=== PATIENT | male | born 1940 | race Caucasian/White ===

== ENCOUNTER 2019-09-22 13:20 | Outpatient (CLI) | payer MEDICARE, OTHER, SELFPAY ==
--- NOTE | ~2019-09-22 | XR_ITS ---
XR hip LT min 2V DATE: 09/22/2019 13:51 INDICATION: Left hip pain. 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 No fracture, dislocation, avascular necrosis or bone destruction is evident. The pubic symphysis and sacral iliac joints are intact. Radiopaque prostate seeds are noted in the pr ostate bed. IMPRESSION: Moderately severe left hip osteoarthritis Reviewed, dictated and finalized at location B. TERIA TABLE ATTENDANT
== END 2019-09-22 13:21 | disposition home or self-care (01) ==
LOC: CHSIMG 13:27
PROVIDERS: PCP Internal Medicine; Visit Provider Internal Medicine
DX: M25.552 Pain in left hip (principal)
CPT/HCPCS: 73502

== ENCOUNTER 2020-09-30 11:06 | Outpatient (CLI) | payer MEDICARE, SELFPAY ==
[2020-09-30 12:38] LABS: SARS-CoV-2 Ag Negative (Negative)
== END 2020-09-30 11:07 | disposition home or self-care (01) ==
LOC: CHSLAB 11:09
PROVIDERS: PCP Internal Medicine; Visit Provider Internal Medicine
DX: R09.81 Nasal congestion (principal); R05 Cough; Z20.822 Contact with and (suspected) exposure to COVID-19
CPT/HCPCS: 87426; C9803

== ENCOUNTER 2020-10-01 13:47 | Outpatient (CLI) | payer MEDICARE, OTHER, SELFPAY ==
--- NOTE | ~2020-10-01 | XR_ITS ---
XR chest 2V DATE: 10/01/2020 14:27 INDICATION: Dyspnea TECHNIQUE: PA and lateral views COMPARISON: 07/19/2017 two-view chest FINDINGS: Heart size is at upper limits of normal. No hilar or mediastinal enlargement. No pulmonary infiltrate or consolidation, pleural effusion or pulmonary vascular congestion or pneumothorax is det ected. Diffuse osteopenia. There is mild to moderate anterior wedging of some mid thoracic vertebral bodies. Diffuse osteopenia. Surgical clips, right upper quadrant, consistent with cholecystectomy. IMPRESSION: No active pulmonary disease Reviewed, dictated and finalized at location A. TRY HATCHERY LABORER IMPRESSION: No active pulmonary disease
--- NOTE | 2020-10-01 14:03 | ECG_ITS ---
Measurements Intervals [place] Rate: 65 P: 15 NC: 194 QRS: 11 QRSD: 82 T: 10 QT: 380 QTc: 395 Interpretive Statements SINUS RHYTHM VOLTAGE CRITERIA FOR LVH BORDERLINE ECG Electronically Signed On 10-01-2020 14:21:06 THEATER MANAGER by Chauncey Galloway D.O.
== END 2020-10-01 13:48 | disposition home or self-care (01) ==
LOC: CHSIMG 13:50
PROVIDERS: PCP Internal Medicine; Visit Provider Internal Medicine
DX: R06.00 Dyspnea, unspecified (principal)
CPT/HCPCS: 71046; 93005

== ENCOUNTER 2020-10-05 08:02 | Outpatient (CLI) | payer MEDICARE, OTHER, SELFPAY ==
--- NOTE | 2020-10-05 08:08 | ECHO_ITS ---
Patient Info Name: Slava Govea Age: 80 years : 1940 Gender: Male Ht: 74 in Wt: 184 lbs BSA: 2.09 m2 HR: 77 bpm BP: 166 / 87 mmHg Heart Rhythm: Sinus Rhythm Technical Quality: Fair Exam Date: 10/05/2020 8:21 AM Exam Location: [facility] Patient Status: Outpatient Admit Date: 10/05/2020 Staff Ordering Physician: Eboni Oneill MD Slot Floorperson: Gail Ferguson RDCS Attending Provider: Eboni Oneill MD Referring Physician: Nino PANTOJA; Exam Type: CA echo doppler color flow Study Info Indications R06.00 - Dyspnea, unspecified Complete two-dimensional, color flow and Doppler transthoracic echocardiogram is performed. Strain analysis performed. History/Risk Factors Hypertension: No Dyslipidemia: Yes Congenital Heart Disease (CHD): No Peripheral Arterial Disease (PAD): No Chronic Lung Disease: No Obesity: No Renal Disease: No Coronary Artery Disease (CAD) No Congestive Heart Failure (CHF): No Cardiomyopathy/LV Systolic Dysfunction: No Diabetes Mellitus: No COPD: No Tobacco Use: Former Cerebrovascular Disease: No Family History: Coronary Artery Disease Deep Vein Thrombosis (DVT): None Dialysis: None Frailty Scale (CSHA): 2: Well Cardiac Arrest: No Summary 1. Complete two-dimensional, color flow and Doppler transthoracic echocardiogram is performed. 2. Left ventricular chamber dimension is normal. 3. Left ventricular systolic function is normal, estimated at 55-60%. 4. There is moderately increased left ventricular wall thickness. 5. The left ventricular diastolic function is grade I diastolic dysfunction. 6. E/e' 14 is mildly elevated. 7. Global longitudinal strain is abnormal at -14.7%. 8. Left atrial chamber dimension is mildly enlarged. 9. There is mild aortic valve sclerosis. 10. There is mild aortic valve regurgitation. 11. There is trace mitral valve regurgitation. 12. No pulmonary hypertension, estimated pulmonary arterial systolic pressure is 37 mmHg. Left Ventricle E/e' 14 is mildly elevated. Global longitudinal strain is abnormal at -14.7%. Left ventricular chamber dimension is normal. Left ventricular systolic function is normal, estimated at 55-60%. There is moderately increased left ventricular wall thickness. The left ventricular diastolic function is grade I diastolic dysfunction. Right Ventricle Right ventricular chamber dimension is normal. Right ventricular systolic function is normal. Left Atria Left atrial chamber dimension is mildly enlarged. Right Atria Right atrial chamber dimension is normal. Aortic Valve The aortic valve is trileaflet. There is mild aortic valve sclerosis. There is no aortic valve stenosis. There is mild aortic valve regurgitation. Pulmonic Valve There is no pulmonic regurgitation. Mitral Valve There is no mitral valve stenosis. There is trace mitral valve regurgitation. Tricuspid Valve There is no tricuspid valve regurgitation. No pulmonary hypertension, estimated pulmonary arterial systolic pressure is 37 mmHg. Pericardium/Pleural There is no pericardial effusion. Inferior Vena Cava Normal inferior vena cava with >50% collapse upon inspiration consistent with normal right atrial pressure, 5 mmHg. Aorta The aortic root size at the sinus of Valsalva is normal. Left Ventricular Outflow Tract
== END 2020-10-05 08:03 | disposition home or self-care (01) ==
LOC: CHSIMG 08:04
PROVIDERS: PCP Internal Medicine; Visit Provider Internal Medicine
DX: R06.00 Dyspnea, unspecified (principal); I35.1 Nonrheumatic aortic (valve) insufficiency; I35.8 Other nonrheumatic aortic valve disorders
CPT/HCPCS: 93306

== ENCOUNTER → 2021-01-17 02:54 | Outpatient (CLI) | payer MEDICARE, OTHER, SELFPAY ==
[2021-01-17 17:43] LABS: SARS-CoV-2 RNA PCR Negative
== END ==
PROVIDERS: PCP Internal Medicine; Visit Provider Surgery
DX: Z01.812 Encounter for preprocedural laboratory examination (principal); Z20.822 Contact with and (suspected) exposure to COVID-19
CPT/HCPCS: C9803; U0003; U0005

== ENCOUNTER 2021-01-20 00:49 | Day surgery (SDC) | payer MEDICARE, OTHER, SELFPAY ==
[2021-01-18 14:02] VITALS: BMI 23.2
[2021-01-20 08:25] VITALS: BP 140/73; PULSE 74; RESP 18; TEMP 36.2; O2SAT 98; BMI 23.2
[2021-01-20] MEDS: LACTATED RINGERS 1,000 ML 150 ML IV CONT (08:40)
[2021-01-20 09:26] VITALS: BP 90/51; PULSE 62; RESP 16; O2SAT 98
--- NOTE | 2021-01-20 09:27 | WPDHPUPDATE1 ---
History and Physical Update Update Date/Time: 01/20/21 09:27 History and Physical has been reviewed, including an updated exam of the patient. There are NO changes in the patient's condition. Risks, benefits, and alternatives have been discussed and questions answered. Patient agrees to proceed with procedure.
--- NOTE | 2021-01-20 09:31 | W.PM.PROC2 ---
Procedure Note - Detailed Date of Procedure 01/20/21 Pre-op Diagnosis rectal bleeding, grade 3 internal hemorrhoids Post-op Diagnosis same Procedure Performed internal hemorrhoid rubber banding x2 Surgeon Donell Pelayo, DO Anesthesia MAC Indications this is an 80-year-old man who presented with rectal bleeding. He has been complaining of prolapsing hemorrhoids that he has to manually reduce. He notices blood dripping in the toilet after bowel movements. Decision was made to proceed with colonoscopy and possible internal hemorrhoid rubber-band. Findings Prolapsing internal hemorrhoids were identified in the left lateral and right anterior locations. Rubber banding performed and both of these locations. Patient tolerated procedure well. Description of Procedure After concluding the colonoscopy, patient was kept in left lateral decubitus position. The anoscope was inserted and the anal rectal canal was carefully inspected. Prominent internal hemorrhoids noted in the left lateral and right anterior locations. Rubber banding performed in both of these locations. No other abnormalities noted. Estimated Blood Loss 0 Complications No immediate complications Condition stable Disposition same day
[2021-01-20 09:36] VITALS: BP 110/65; PULSE 68; RESP 15; O2SAT 98
[2021-01-20 09:46] VITALS: BP 124/78; PULSE 66; RESP 18; O2SAT 98
== END 2021-01-20 10:13 | disposition home or self-care (01) ==
PROVIDERS: PCP Internal Medicine; Visit Provider Surgery
PROC: 0DJD8ZZ Inspection of Lower Intestinal Tract, Via Natural or Artificial Opening Endoscopic (ICD-10-PCS; CPT 45378; principal; 2021-01-20 10:00)
PROC: (CPT 46221; 2021-01-20 10:00)
DX: K64.2 Third degree hemorrhoids (principal); D12.4 Benign neoplasm of descending colon; D12.5 Benign neoplasm of sigmoid colon
CPT/HCPCS: 46221; 45385; 88305; J2704; J7120

== ENCOUNTER 2021-02-04 11:11 | Outpatient (CLI) | payer MEDICARE, OTHER, SELFPAY ==
--- NOTE | ~2021-02-04 | US_ITS ---
EXAMINATION: US venous doppler LE RT DATE: 02/04/2021 11:45 INDICATION: Right lower limb pain TECHNIQUE: Brown scale images without and with compression and Doppler images of the right lower extre mity veins were obtained. COMPARISON: None FINDINGS: The right common femoral vein, profunda femoral vein, femoral vein, popliteal vein, peronea l trunk, posterior tibial veins, and greater saphenous vein are patent. IMPRESSION: 1. Patent right lower extremity veins. No evidence of deep venous thrombosis. Reviewed, dictated and finalized at location B.
--- NOTE | ~2021-02-04 | XR_ITS ---
EXAMINATION: XR tibia fibula RT 2V DATE: 02/04/2021 12:37 INDICATION: Right lower leg pain. TECHNIQUE: 2 views of right tibia and fibula on 4 radiographs were obtained. COMPARISON: None. FINDINGS: Bone alignment is normal. No fracture. There is mild right knee osteoarthritis. There is an enthesophyte at plantar aspect of calcaneal tuberosity. IMPRESSION: 1. Mild right knee osteoarthritis. Reviewed, dictated and finalized at location A.
[2021-02-04 11:23] LABS: Basophils Absolute Auto 0.04 K/mm3 (0.00-0.10); Basophils Percent Auto 0.7 % (0.0-1.0); Eosinophils Absolute Auto 0.26 K/mm3 (0.02-0.50); Eosinophils Percent Auto 4.6 % (1.0-6.0); Hematocrit 43.4 % (37.0-46.0); Hemoglobin 14.7 g/dL (12.4-15.3); Immature Granulocyte Absolute 0.04 K/mm3 (0.00-0.00); Immature Granulocyte Percent A 0.7 % (0.0-0.0); Lymphocytes Absolute Auto 1.75 K/mm3 (1.10-4.50); Lymphocytes Percent Auto 31.1 % (18.0-42.0); Mean Corpuscular HGB Conc 33.9 g/dL (32.0-36.0); Mean Corpuscular Hemoglobin 30.9 pg (27.0-31.0); Mean Corpuscular Volume 91.2 fL (78.0-102.0); Mean Platelet Volume 8.8 fl (8.7-11.0); Monocytes Absolute Auto 0.43 K/mm3 (0.10-0.90); Monocytes Percent Auto 7.6 % (2.0-11.0); Neutrophils Absolute Auto 3.1 K/mm3 (1.7-7.2); Neutrophils Percent Auto 55.3 % (50.0-70.0); Platelet Count Result 251 K/mm3 (150-420); Red Blood Count 4.76 M/mm3 (4.70-6.10); White Blood Count 5.6 K/mm3 (4.8-10.8)
[2021-02-04 11:38] LABS: Partial Thromboplastin Time 26.1 SEC (23.90-30.70); Prothrombin Time 10.3 Seconds (9.50-12.10)
[2021-02-04 12:47] LABS: Alanine Aminotransferase 31 U/L (16-63); Albumin Level 3.9 g/dL (3.4-5.0); Alkaline Phosphatase 129 U/L (46-116); Anion Gap 10 mmol/L (8-16); Aspartate Amino Transferase 19 U/L (15-37); Bilirubin,Total 0.7 mg/dL (0.00-1.00); Blood Urea Nitrogen 18 mg/dL (7-18); Calcium 9.7 mg/dL (8.5-10.1); Carbon Dioxide 27 mmol/L (21-32); Chloride 108 mmol/L (98-108); Estimated Glomerular Filt Rate > 60; Glucose 93 mg/dL (70-99); Osmolality Calculated 301 mOsm/kg (285-295); Potassium 4.4 mmol/L (3.5-5.1); Sodium 145 mmol/L (136-145); Total Protein 6.9 g/dL (6.4-8.2)
== END 2021-02-04 11:12 | disposition home or self-care (01) ==
PROVIDERS: PCP Internal Medicine; Visit Provider Nurse Practitioner Family
DX: M79.661 Pain in right lower leg (principal)
CPT/HCPCS: 36415; 73590; 80053; 85025; 85610; 85730; 93971

== ENCOUNTER 2021-02-06 09:41 | Emergency (ER) | payer MEDICARE, OTHER, SELFPAY ==
[2021-02-06 09:50] VITALS: BP 142/85; PULSE 80; RESP 17; TEMP 36.7; O2SAT 95
[2021-02-06] MEDS: KETOROLAC (*BKC) 60 MG/2 ML VIAL IM (10:01)
--- NOTE | 2021-02-06 10:02 | ED.EXTPRO ---
HPI - Extremity Problem General Chief complaint: Extremity Problem,Nontraumatic Stated complaint: R leg pain Time Seen by Provider: 02/06/21 09:52 Source: patient Mode of arrival: ambulatory Limitations: no limitations History of Present Illness Complaint: extremity pain Onset (ago): week(s) (1 week ago) Pain Consistency: intermittent Location: right and lower extremity Severity scale (1-10): 5 Quality: aching and dull Radiation: distal (from right buttock to right leg and toes. no acute trauma. known lumbar vertebral compression) Relieving factors: medication and rest Exacerbating factors: weight bearing and walking Associated symptoms: denies other symptoms Related Data Home Medications Medication Instructions Recorded Confirmed atorvastatin 40 mg tablet 40 mg PO DAILY 01/12/21 02/06/21 Allergies Allergy/AdvReac Type Severity Reaction Status Date / Time No Known Allergies Allergy Unknown Verified 01/18/21 14:07 Review of Systems Review of Systems: All systems reviewed & are unremarkable except as noted in HPI and below Constitutional: Constitutional: Reports as per HPI and Reports no additional constitutional complaints Eyes: Eyes: Reports as per HPI and Reports no additional eye complaints ENT: Reports system reviewed and no additional complaints, except as documented and Reports as per HPI Cardiovascular: Cardiovascular: Reports as per HPI and Reports no additional cardiovascular complaints Respiratory: Respiratory: Reports as per HPI and Reports no additional respiratory complaints Gastrointestinal: Gastrointestinal: Reports as per HPI and Reports no additional gastrointestinal complaints Genitourinary: Genitourinary: Reports no additional male genitourinary complaints and Reports as per HPI Musculoskeletal: Musculoskeletal: Denies back pain and Reports myalgias (right buttock to right leg pain) Integumentary/Breasts: Skin/Breast: Reports system reviewed and no additional complaints, except as docu and Reports as per HPI Neurologic: Reports system reviewed and no additional complaints, except as documented and Reports as per HPI Psychiatric: Psychiatric: Reports no additional psychiatric complaints and Reports as per HPI Endocrine: Endocrine: Reports no additional endocrine complaints and Reports as per HPI Hematologic/Lymphatic: Hematologic/Lymphatic: Reports no additional hematologic/lymphatic complaints Allergic/Immunologic: Allergic/Immunologic: Reports no additional allergic/immunologic complaints and Reports as per HPI PMFSH Past Medical History Medical History High cholesterol Surgical History Surgical History H/O hand surgery History of carpal tunnel release History of cholecystectomy Family History Family History Sibling Patient's sister is in good health Family history of hepatitis, Onset Age: 50 Patient's brother is Mother Acute myocardial infarction, Onset Age: 89 Patient's mother is Heart disease Father Patient's father is Acute myocardial infarction Heart disease Social History Social History Years smoked: 2 Smoking status: Former smoker Tobacco type: cigarettes Alcohol intake: never Substance use: never Substance use type: does not use 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
[2021-02-06 10:22] VITALS: RESP 16
== END 2021-02-06 10:20 | disposition home or self-care (01) ==
PROVIDERS: Emergency Provider Emergency Medicine; PCP Internal Medicine
DX: M54.31 Sciatica, right side (principal)
CPT/HCPCS: 96372; 99283; J1885

== ENCOUNTER 2021-03-01 13:37 | Outpatient (CLI) | payer MEDICARE, OTHER, SELFPAY ==
[2021-03-01 15:44] LABS: Urine Cotinine NEGATIVE
[2021-03-01 15:48] LABS: Hemoglobin A1C 5.7 % (<5.7)
== END 2021-03-01 13:38 | disposition home or self-care (01) ==
LOC: ANHSURGERY 13:39
PROVIDERS: PCP Internal Medicine; Visit Provider Orthopaedic Surgery
DX: Z01.812 Encounter for preprocedural laboratory examination (principal); M16.12 Unilateral primary osteoarthritis, left hip; Z51.81 Encounter for therapeutic drug level monitoring; Z79.899 Other long term (current) drug therapy
CPT/HCPCS: 80307; 83036; 86850; 86900; 86901; 87070

== ENCOUNTER 2021-03-04 11:08 | Outpatient (CLI) | payer MEDICARE, OTHER, SELFPAY ==
--- NOTE | ~2021-03-04 | XR_ITS ---
EXAMINATION: XR chest 2V 03/04/2021 11:34 INDICATION: Dyspnea. PROCEDURE: 2 view chest COMPARISON: Comparison to multiple prior studies sequentially, with oldest reviewed study dated 09/2008. FINDINGS: The lungs are clear. The cardiomediastinal silhouette is within normal limits. There are no pleural effusions. There is no pneumothorax suspected. IMPRESSION: 1: NO ACUTE CARDIOPULMONARY DISEASE. Reviewed, dictated and finalized at location A.
== END 2021-03-04 11:09 | disposition home or self-care (01) ==
LOC: CHSIMG 11:10
PROVIDERS: PCP Internal Medicine; Visit Provider Internal Medicine
DX: R06.00 Dyspnea, unspecified (principal); Z01.818 Encounter for other preprocedural examination
CPT/HCPCS: 71046

== ENCOUNTER 2021-03-15 06:35 | Inpatient (IN) | payer MEDICARE, OTHER, SELFPAY ==
[2021-03-01 14:22] VITALS: BP 175/65; PULSE 62; RESP 18; TEMP 36.7; O2SAT 98; BMI 25.4
--- NOTE | 2021-03-11 09:07 | PM.IMHP ---
H&P: HPI History of Present Illness Date/Time: 03/11/21 09:07 81 y/o patient of Dr. Oneill Who presents today for a left anterior total hip arthroplasty. He has been having pain in this left hip for over a year and half. It has progressively worsened. He is a very active 81-year-old. He is finding it difficult to maintain his active lifestyle to the pain in the groin and in the anterior thigh. 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 The patient feels that he has reached a point where he feels he is ready to proceed with total arthroplasty rather continue nonsurgical treatment. He has been taking Aleve 2 tablets once a day again without improvement of his symptoms. Chief Complaint: Left hip DJD Review of Systems Review of Systems: All systems reviewed & are unremarkable except as noted in HPI and below PMFSH Past Medical History Medical History High cholesterol Surgical History Surgical History H/O hand surgery History of carpal tunnel release History of cholecystectomy Family History Family History Sibling Patient's sister is in good health Family history of hepatitis, Onset Age: 50 Patient's brother is Mother Acute myocardial infarction, Onset Age: 89 Patient's mother is Heart disease Father Patient's father is Acute myocardial infarction Heart disease Social History Social History Smoking packs per day: 0.5 Smoking cigarettes per day: 10.0 Years smoked: 4 Smoking pack-years: 2.00 Smoking status: Former smoker Tobacco type: cigarettes Smoking end date: 02/03/1967 Alcohol intake: former Alcohol use details: [employer]INK[employer] Substance use: never Substance use type: does not use 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 He is 5 ft 11 182 lb. He walks without a limp. Left hip flexes to 105 with groin pain internal rotation to 0 with groin pain and external rotation 25 with mild groin pain. Stinchfield maneuver is negative. He has normal abduction strength in lateral position. No tenderness over the greater trochanter. 2+ posterior tibial artery pulse 1 +dorsalis pedis pulse. Normal sensation light touch left lower extremity. No edema in left lower extremity. Resp: Auscultation: clear to auscultation bilaterally Cardio: Rate: regular rate Rhythm: regular rhythm Assessment and Plan Additional Plan 1-year-old male with severe type 2 arthritis left hip with rather severe symptoms on a daily basis. Again he feels that the pain is keeping him from being active. Again he is very healthy individual and feels this point he would rather proceed with total hip arthroplasty rather continue nonsurgical treatment. Surgical procedure as well as the risks and complications were discussed in detail and all questions were answered and we will proceed. Patient will avoid his baby aspirin 1 week prior to surgery. He will see his primary care doctor for pre-surgical clearance. Patient has seen his produce weigher at [facility],Dr Diallo. He had stress echo due in October of this year which showed no evidenc
--- NOTE | 2021-03-11 19:26 | WPDANESEPP ---
Anes - Eval Pre Procedure Procedure: Operation Date: 03/14/21 07:30 Proposed Procedures p Left Total Hip Arthroplasty Anterior Approach - Eric Maradiaga MD Date/Time: 03/11/21 19:26 Pre Op Diagnosis: Severe OA Left Hip Patient Data Age: 81 Gender: M Height: 1.83 m Weight: 85.1 kg Last Vital Signs Temp 36.7 C 03/01/21 14:22 Pulse 62 03/01/21 14:22 Resp 18 03/01/21 14:22 BP 175/65 H 03/01/21 14:22 Pulse Ox 98 03/01/21 14:22 Allergies Allergy/AdvReac Type Severity Reaction Status Date / Time anchovies Allergy Rash, Uncoded 03/01/21 14:18 difficulty breathing Home Medications Medication Instructions Recorded Confirmed Type atorvastatin 40 mg tablet 40 mg PO QAM 01/12/21 03/01/21 History omeprazole magnesium [Prilosec OTC] 20 mg PO DAILY #20 tablet 02/06/21 03/01/21 Rx aspirin [Adult Aspirin EC Low 81 mg PO DAILY 03/01/21 03/01/21 History Strength] Patient hx anesthesia problems: none Family hx anesthesia problems: none PMFSH Past Medical History Medical History (Updated 03/11/21 @ 19:27 by Kumar Wolf DO) Compression fracture of lumbar vertebra High cholesterol History of prostate cancer 2008, radiation seeds Surgical History Surgical History H/O hand surgery History of carpal tunnel release History of cholecystectomy Family History Family History Sibling Patient's sister is in good health Family history of hepatitis, Onset Age: 50 Patient's brother is Mother Acute myocardial infarction, Onset Age: 89 Patient's mother is Heart disease Father Patient's father is Acute myocardial infarction Heart disease Social History Social History Smoking packs per day: 0.5 Smoking cigarettes per day: 10.0 Years smoked: 4 Smoking pack-years: 2.00 Smoking status: Former smoker Tobacco type: cigarettes Smoking end date: 02/03/1967 Alcohol intake: former Alcohol use details: [employer] Substance use: never Substance use type: does not use 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
[2021-03-14] VITALS (15 sets, daily range): BP systolic 102–159; BP diastolic 50–87; PULSE 68–88; RESP 13–18; TEMP 36.1–37.1; O2SAT 93–100
[2021-03-14] MEDS: ACETAMINOPHEN 500 MG TABLET 1000 MG PO ×4 (06:40→23:45)
[2021-03-14] MEDS: LACTATED RINGERS 1,000 ML 30 ML IV CONT ×2 (06:45→11:36)
[2021-03-14] MEDS: TRANEXAMIC ACID 1,000MG/ISO100 1,000 MG/100 ML BAG 200 MG IVPB (06:47)
--- NOTE | 2021-03-14 07:11 | WPDHPUPDATE1 ---
History and Physical Update Update Date/Time: 03/14/21 07:11 History and Physical has been reviewed, including an updated exam of the patient. There are NO changes in the patient's condition. Risks, benefits, and alternatives have been discussed and questions answered. Patient agrees to proceed with procedure.
--- NOTE | 2021-03-14 07:12 | P.PNAN_ITS ---
Anes - Initial Pre Proc Eval Procedure: Operation Date: 03/14/21 07:30 Proposed Procedures p Left Total Hip Arthroplasty Anterior Approach - Eric Maradiaga MD Date/Time: 03/14/21 07:12 Surgeon: Eric Maradiaga MD Pre Op Diagnosis: Severe OA Left Hip Patient Data Age: 81 Gender: M Height: 1.83 m Weight: 85.1 kg Last Vital Signs Temp 98.1 F 03/01/21 14:22 Pulse 62 03/01/21 14:22 Resp 18 03/01/21 14:22 BP 175/65 H 03/01/21 14:22 Pulse Ox 98 03/01/21 14:22 Allergies Allergy/AdvReac Type Severity Reaction Status Date / Time anchovies Allergy Rash, Uncoded 03/14/21 07:11 difficulty breathing Home Medications Medication Instructions Recorded Confirmed Type atorvastatin 40 mg tablet 40 mg PO QAM 01/12/21 03/01/21 History omeprazole magnesium [Prilosec OTC] 20 mg PO DAILY #20 tablet 02/06/21 03/01/21 Rx aspirin [Adult Aspirin EC Low 81 mg PO DAILY 03/01/21 03/01/21 History Strength] Patient hx anesthesia problems: none Family hx anesthesia problems: none PMFSH Past Medical History Medical History (Updated 03/11/21 @ 19:27 by Kumar Wolf DO) Compression fracture of lumbar vertebra High cholesterol History of prostate cancer 2008, radiation seeds Surgical History Surgical History H/O hand surgery History of carpal tunnel release History of cholecystectomy Family History Family History Sibling Patient's sister is in good health Family history of hepatitis, Onset Age: 50 Patient's brother is Mother Acute myocardial infarction, Onset Age: 89 Patient's mother is Heart disease Father Patient's father is Acute myocardial infarction Heart disease Social History Social History Smoking packs per day: 0.5 Smoking cigarettes per day: 10.0 Years smoked: 2 Smoking pack-years: 1.00 Smoking status: Former smoker Tobacco type: cigarettes Smoking end date: 02/03/1967 Alcohol intake: never Alcohol use details: [employer] Substance use: never Substance use type: does not use Living arrangements: alone 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 Questions were solicited and answers provided to the satisfaction of the patient/family/POA.
--- NOTE | 2021-03-14 07:31 | SUR.PREOP ---
5020 DR. OCONNOR MADE AWARE OF TWO SCRATCHES FROM HAIR REMOVAL.
[2021-03-14] MEDS: ceFAZolin 2 GM/D5W 50 ML 2 GM/50 ML BAG IVPB (07:58)
[2021-03-14] MEDS: ceFAZolin SODIUM 1 GM VIAL 3 GM IRRIGATION (08:21)
[2021-03-14] MEDS: ceFAZolin SODIUM 1 GM VIAL IV PUSH (11:03)
[2021-03-14] MEDS: TRANEXAMIC ACID 1,000 MG/10 ML AMPUL 1000 MG IV PUSH (11:04)
--- NOTE | 2021-03-14 11:20 | W.PM.PROC2 ---
Procedure Note - Detailed Date of Procedure 03/14/21 Pre-op Diagnosis Severe OA Left Hip Post-op Diagnosis same Procedure Performed Direct anterior approach left total hip arthroplasty Surgeon Eric Maradiaga MD [employer] Anesthesia general Indications Pain Findings Same Description of Procedure Patient brought to the operating room and general anesthesia was administered. Soft roll was applied to the feet and there placed in boots his transfer the OSI [place] table the feet secured SCDs on the legs operating. He received 2 g of Ancef weight based vancomycin 1 g of tranexamic acid preoperatively left hip prepped draped usual fashion. A 10 cm longitudinal incision was made starting about 2.5 cm lateral and 1 cm distal to the ASIS. The fascia over the tensor fascia mercedes was was exposed and longitudinally incised in its midportion elevated off the anterior 1/2 the TFL muscle interval between TFL and rectus femoris developed. We carefully isolated the branching vessels of the ascending lateral femoral circumflex branch and these were ligated with suture and divided. Ileal capsular is elevated off the anterior capsule retractor placed. Hip was abducted internally rotated and the gluteus minimus elevated off the lateral capsule. Standard capsulotomy was performed femoral neck osteotomy made according to preoperative templating the head was removed without difficulty. It measured 51 mm diameter. It was eburnated on its superior surface. There is no abnormal numb of appearance to the cancellous bone of the femoral neck. Acetabulum was exposed labrum excised. Hip was externally rotated and extended and the interval between conjoined tendon and piriformis was incised allowing the conjoined tendon to partially recessed. This gave adequate anterior mobilization the femur. With the leg back in the horizontal position the acetabulum was prepared. We medialized with a 45 mm Reamer to the floor of the fovea and then reamed up to 53 mm which reamed to the periphery was the appropriate size. We lightly reamed with a 54 and impacted the 54 shell [place] at approximately 40? of abduction and anteversion such that the shell was just a mm and the anterior wall and about 2 mm proud of the posterior wall. Excellent Press-Fit was achieved. A single screw placed up in the ilium for additional fixation. This cancellous bone was a little bit on the softer side. The leg was externally rotated extended and the femur addressed. We broached up to a size 7 which is what we templated to preoperatively. There was a little bit of wiggle on the broach. We determine the appropriate neck height after trialing and saw that the 1.5 was the appropriate neck lengths on the 30/6 mm head. We had already placed the 36 mm inner diameter 0 degree liner. This restored the preoperative leg length. There was a little bit of wiggle on the 7 broach went up to 8 and I was surprised to see that there was a little bit of torsional wiggle with the 8 as well so we went up to the 9 broach which bottomed out right at the level of the calcar planed neck cut would go no further. This had excellent torsional stability. We trialed and minus two with 0 twitches seemed that it would be probably appropriate the 1.5 just a little bit snug. We chose the size 9 high offset Actis stem. We used the Actis stem because of his age large size though quite canal and the aid of a collar and this was impacted and we could not seat it the last mm. The 1 minutes 0.5 mm neck was just a little bit tight the-2 head appropriate Shuck soft tissue tension but stayed stable. We impacted the-236 mm cobalt chromium stainless steel head onto the clean and dried trunnion the wound was again irrigated with antibiotic solution hip reduced stability reconfirmed. The capsular flaps were reapproximated with a 2. Vicryl and fascia over the tensor fascia mercedes repaired with running 1. Vicryl drain subcu skin with 2 subcutaneous Vicryl
[2021-03-14] MEDS: fentaNYL CITRATE INJ (*CRX) 100 MCG/2 ML VIAL 25 MCG IV PUSH (12:01)
--- NOTE | 2021-03-14 13:00 | PC.NURSE ---
This patient, Slava Govea Jr., was admitted to Medical Room 259-01. Patient/family oriented to hospital policies and general routines including ID bracelet, bed and alarms, visiting hours, pain management, procedures, bathroom and other care routines, personal items, smoking policy, room service/diet, and visiting hours. Information on how to activate the Rapid Response Team has been discussed. Patient/Family are encouraged to report perceived risks to care and to ask questions if they do not understand what they are told or what they should do.
[2021-03-14 13:23] LABS: Hematocrit 35.3 % (42.0-52.0); Hemoglobin 11.1 g/dL (14.0-18.0)
[2021-03-14] MEDS: oxyCODONE HCL (*CRX) 2.5 MG TAB IR PO ×4 (13:53→23:45)
[2021-03-14] MEDS: SODIUM CHLORIDE 0.9% IV 1,000 ML 125 ML IV CONT (13:56)
[2021-03-14] MEDS: SENNA/DOCUSATE SODIUM TABLET 2 TAB PO (17:53)
[2021-03-14] MEDS: FAMOTIDINE 20 MG TABLET PO (20:00)
--- NOTE | ~2021-03-15 | XR_ITS ---
EXAMINATION: XR hip LT 1V w AP pelvis DATE: 03/14/2021 11:41 INDICATION: Left hip arthroplasty. Postop. TECHNIQUE: An anteroposterior view of the pelvis and single view of left hip were obtained. COMPARISON: Left hip radiographs 09/22/2019 FINDINGS: There is a total left hip arthroplasty in near-anatomic alignment. No fracture. There is mi ld right hip osteoarthritis. There are brachytherapy seeds in the prostate. There is gas around the l eft hip, consistent with recent surgery. A surgical drain is noted. IMPRESSION: 1. Total left hip arthroplasty in near-anatomic alignment. 2. Mild right hip osteoarthritis. Reviewed, dictated and finalized at location A.
--- NOTE | ~2021-03-15 | XR_ITS ---
EXAMINATION: XR surgery orthopedic DATE: 03/14/2021 11:39 INDICATION: Total left hip arthroplasty. TECHNIQUE: A single intraoperative fluoroscopic view of the left hip was obtained. I was not present. Fluoroscopy exposure time was 33 seconds. COMPARISON: Left hip radiographs 09/22/2019 FINDINGS: There is a total left hip arthroplasty in near-anatomic alignment. There are brachytherapy seeds in the prostate. IMPRESSION: 1. Total left hip arthroplasty in near-anatomic alignment. Reviewed, dictated and finalized at location A.
[2021-03-15] MEDS: oxyCODONE HCL (*CRX) 2.5 MG TAB IR PO (05:09)
[2021-03-15] MEDS: ACETAMINOPHEN 500 MG TABLET 1000 MG PO ×3 (05:09→22:15)
[2021-03-15 05:49] LABS: Basophils Percent Auto 0.4 % (0.2-1.2); Eosinophils Percent Auto 0.1 % (0-4.4); Hemoglobin 8.9 g/dL (14.0-18.0); Immature Granulocyte Absolute 0.06 K/mm3 (0.00-0.031); Immature Granulocyte Percent A 0.6 % (0-0.5); Lymphocytes Absolute Auto 1.49 K/mm3 (0.9-3.2); Lymphocytes Percent Auto 14.7 % (18.3-44.2); Mean Corpuscular HGB Conc 31.8 g/dl (32-36); Mean Corpuscular Hemoglobin 30.4 pg (26-34); Mean Corpuscular Volume 95.6 fl (80-100); Mean Platelet Volume 9.2 fl (7.4-10.4); Monocytes Percent Auto 9.4 % (2.6-8.5); Neutrophils Absolute Auto 7.6 K/mm3 (1.3-6.7); Neutrophils Percent Auto 74.8 % (45.5-73.1); Platelet Count Result 210 k/mm3 (150-375); Red Blood Count 2.93 M/mm3 (4.6-6.20); Red Cell Distribution Width 14.6 % (11.5-14.5); White Blood Count 10.2 K/mm3 (4.5-10.0)
[2021-03-15 05:55] LABS: Anion Gap 7 mmol/L (8-16); Blood Urea Nitrogen 16 mg/dL (9-20); Calcium 8.5 mg/dL (8.4-10.2); Carbon Dioxide 22 mmol/L (22-30); Chloride 106 mmol/L (98-107); Estimated CRCL calculation 42 ml/min; Estimated Glomerular Filt Rate 53; Glucose 139 mg/dL (65-110); Potassium 3.8 mmol/L (3.4-5.0); Sodium 135 mmol/L (137-145)
--- NOTE | 2021-03-15 06:18 | PM.PNORT ---
Progress Note: A&P Additional Plan POD 1 alert avss, Cr-1.3 this morn, hgb-8.9, pt was up walking with PT doing well, drain is out , dressing is dry, pt states he has not urinated since surg. only had approx. 30cc out during surg. has had 840cc intake since being on floor, no hx of urinating issues, on no meds for it, will give blous of fluid this am and continue with IV fluids, pt is being bladder scanned and may need straight cath if retaining, will plan to keep for additional night since Cr has elevated and will see how pt does today with urination .may need to consult urology Subjective Subjective Date/Time Seen: 03/15/21 06:18 Objective Data Vital Signs Vital Signs: Vital Signs - 24 hr 03/14/21 11:36 03/14/21 11:50 03/14/21 12:05 Temperature 36.1 C L Pulse Rate 78 73 74 Respiratory Rate 14 16 13 Blood Pressure 130/57 L 132/63 137/74 Pulse Oximetry 95 98 98 03/14/21 12:15 03/14/21 12:20 03/14/21 12:35 Temperature Pulse Rate 76 78 Respiratory Rate 14 15 Blood Pressure 115/70 134/54 L Pulse Oximetry 98 95 96 03/14/21 12:41 03/14/21 13:25 03/14/21 13:40 Temperature 36.1 C L 36.7 C 36.5 C Pulse Rate 77 75 80 Respiratory Rate 16 16 16 Blood Pressure 119/51 L 114/51 L 112/50 L Pulse Oximetry 95 96 98 03/14/21 14:10 03/14/21 15:30 03/14/21 18:28 Temperature 36.8 C 37.1 C 36.9 C Pulse Rate 77 81 77 Respiratory Rate 16 16 16 Blood Pressure 104/54 L 102/56 L 113/53 L Pulse Oximetry 97 100 94 03/14/21 20:00 03/14/21 23:41 Temperature 36.9 C Pulse Rate 81 88 Respiratory Rate 16 16 Blood Pressure 111/54 L Pulse Oximetry 100 93 Intake/Output Intake/Output: Intake & Output 03/12/21 03/13/21 03/14/21 03/15/21 23:59 23:59 23:59 23:59 Intake Total 790 50 Output Total 0 Balance 790 50 Meds/Results Medications: Active Medications Generic Name Dose Route Start Last Admin Trade Name Freq PRN Reason Stop Dose Admin Acetaminophen 1,000 mg 03/14/21 18:00 03/15/21 05:09 Acetaminophen 500 Mg Tablet PO 1,000 mg Q6HR MIKHAIL Administration Al Hydrox/Mg Hydrox/Simethicone 30 ml 03/14/21 12:43 Mag Hydrox/Al Hydrox/Simeth 30 Ml Udc PO Q6H PRN Indigestion Apixaban 2.5 mg 03/15/21 09:00 Apixaban 2.5 Mg Tablet PO 04/18/21 21:01 Q12HR [facility] Atorvastatin Calcium 40 mg 03/15/21 09:00 Atorvastatin 40 Mg Tablet PO QAM [facility] Celecoxib 200 mg 03/15/21 09:00 Celecoxib 200 Mg Capsule PO DAILY [facility] Famotidine 20 mg 03/14/21 21:00 03/14/21 20:00 Famotidine 20 Mg Tablet PO 20 mg Q12HR MIKHAIL Administration Hydroxyzine HCl 50 mg 03/14/21 12:43 Hydroxyzine Hcl 25 Mg Tablet PO Q4H PRN Itching Vancomycin HCl 1,000 mg in 250 mls @ 250 mls/hr 03/14/21 19:00 03/14/21 17:53 Vancomycin 1,000 Mg/D5w 250 Ml IVPB 03/15/21 07:59 250 mls/hr Q12H [facility] Administration Cefazolin Sodium 1 gm in 50 mls @ 100 mls/hr 03/14/21 16:00 03/15/21 00:15 Ancef 1 Gm/D5w 50 Ml Pm IVPB 03/15/21 08:29 Infused Q8H [facility] Infusion Magnesium Hydroxide 30 ml 03/14/21 12:43 Magnesium Hydroxide Susp 30 Ml Udc PO BID PRN Constipation Morphine Sulfate 2 mg 03/14/21 12:43 Morphine Sulfate (*Crx) 2 Mg/Ml Inj IV PUSH Q4H PRN Pain Rated 7-10 Naloxone HCl 0.1 mg 03/14/21 12:43 Naloxone Hcl 0.4 Mg/Ml Vial IV PUSH Q2M PRN Opiate Reversal Ondansetron HCl 4 mg 03/14/21 12:43 Ondansetron Inj 4 Mg/2 Ml Vial IV PUSH Q4H PRN Nausea And Vomiting Oxycodone HCl 2.5 mg 03/14/21 12:43 03/15/21 05:09 Oxycodone Hcl (*Crx) 2.5 Mg Tab Ir PO 2.5 mg Q4H MIKHAIL Administration Oxycodone HCl 2.5 mg 03/14/21 12:43 Oxycodone Hcl (*Crx) 2.5 Mg Tab Ir PO Q4H PRN Pain Rated 4-6 Polyethylene Glycol 17 gm 03/15/21 09:00 Polyethylene Glycol 3350 17 Gm Powd.Pack PO QAM MIKHAIL Senna/Docusate Sodium 2 tab 03/14/21 17:00 03/14/21 17:53 Senna/Docusate Sodium Tablet PO
[2021-03-15 06:26] VITALS: BP 91/42; PULSE 79; RESP 16; TEMP 37.1; O2SAT 91
--- NOTE | 2021-03-15 06:38 | PM.PNORT ---
Progress Note: A&P Additional Plan Pt did void 400cc this am .had 700cc on bladder scan before getting to urinate. also c/o of some ulnar nerve symptoms on the left hand due to lying with elbow bent resting hand on chest, advised pt to stop holding in this position, will hold off on bolus but cont with IV fluids, min swelling in thigh, low hgb is poss hemodilutional,will recheck CBC and BMP tomorrow am Subjective Subjective Date/Time Seen: 03/15/21 06:38 Objective Data Vital Signs Vital Signs: Vital Signs - 24 hr 03/14/21 11:36 03/14/21 11:50 03/14/21 12:05 Temperature 36.1 C L Pulse Rate 78 73 74 Respiratory Rate 14 16 13 Blood Pressure 130/57 L 132/63 137/74 Pulse Oximetry 95 98 98 03/14/21 12:15 03/14/21 12:20 03/14/21 12:35 Temperature Pulse Rate 76 78 Respiratory Rate 14 15 Blood Pressure 115/70 134/54 L Pulse Oximetry 98 95 96 03/14/21 12:41 03/14/21 13:25 03/14/21 13:40 Temperature 36.1 C L 36.7 C 36.5 C Pulse Rate 77 75 80 Respiratory Rate 16 16 16 Blood Pressure 119/51 L 114/51 L 112/50 L Pulse Oximetry 95 96 98 03/14/21 14:10 03/14/21 15:30 03/14/21 18:28 Temperature 36.8 C 37.1 C 36.9 C Pulse Rate 77 81 77 Respiratory Rate 16 16 16 Blood Pressure 104/54 L 102/56 L 113/53 L Pulse Oximetry 97 100 94 03/14/21 20:00 03/14/21 23:41 03/15/21 06:26 Temperature 36.9 C 37.1 C Pulse Rate 81 88 79 Respiratory Rate 16 16 16 Blood Pressure 111/54 L 91/42 L Pulse Oximetry 100 93 91 Intake/Output Intake/Output: Intake & Output 03/12/21 03/13/21 03/14/21 03/15/21 23:59 23:59 23:59 23:59 Intake Total 1040 50 Output Total 0 400 Balance 1040 -350 Meds/Results Medications: Active Medications Generic Name Dose Route Start Last Admin Trade Name Freq PRN Reason Stop Dose Admin Acetaminophen 1,000 mg 03/14/21 18:00 03/15/21 05:09 Acetaminophen 500 Mg Tablet PO 1,000 mg Q6HR MIKHAIL Administration Al Hydrox/Mg Hydrox/Simethicone 30 ml 03/14/21 12:43 Mag Hydrox/Al Hydrox/Simeth 30 Ml Udc PO Q6H PRN Indigestion Apixaban 2.5 mg 03/15/21 09:00 Apixaban 2.5 Mg Tablet PO 04/18/21 21:01 Q12HR MIKHAIL Atorvastatin Calcium 40 mg 03/15/21 09:00 Atorvastatin 40 Mg Tablet PO QAM MIKHAIL Famotidine 20 mg 03/14/21 21:00 03/14/21 20:00 Famotidine 20 Mg Tablet PO 20 mg Q12HR MIKHAIL Administration Hydroxyzine HCl 50 mg 03/14/21 12:43 Hydroxyzine Hcl 25 Mg Tablet PO Q4H PRN Itching Vancomycin HCl 1,000 mg in 250 mls @ 250 mls/hr 03/14/21 19:00 03/15/21 06:19 Vancomycin 1,000 Mg/D5w 250 Ml IVPB 03/15/21 07:59 250 mls/hr Q12H [facility] Administration Cefazolin Sodium 1 gm in 50 mls @ 100 mls/hr 03/14/21 16:00 03/15/21 00:15 Ancef 1 Gm/D5w 50 Ml Pm IVPB 03/15/21 08:29 Infused Q8H [facility] Infusion Lactated Ringer's 1,000 mls @ 100 mls/hr 03/15/21 06:30 Lr - Lactated Ringers Iv IV CONT .Q10H [facility] Magnesium Hydroxide 30 ml 03/14/21 12:43 Magnesium Hydroxide Susp 30 Ml Udc PO BID PRN Constipation Morphine Sulfate 2 mg 03/14/21 12:43 Morphine Sulfate (*Crx) 2 Mg/Ml Inj IV PUSH Q4H PRN Pain Rated 7-10 Naloxone HCl 0.1 mg 03/14/21 12:43 Naloxone Hcl 0.4 Mg/Ml Vial IV PUSH Q2M PRN Opiate Reversal Ondansetron HCl 4 mg 03/14/21 12:43 Ondansetron Inj 4 Mg/2 Ml Vial IV PUSH Q4H PRN Nausea And Vomiting Oxycodone HCl 2.5 mg 03/14/21 12:43 03/15/21 05:09 Oxycodone Hcl (*Crx) 2.5 Mg Tab Ir PO 2.5 mg Q4H MIKHAIL Administration Oxycodone HCl 2.5 mg 03/14/21 12:43 Oxycodone Hcl (*Crx) 2.5 Mg Tab Ir PO Q4H PRN Pain Rated 4-6 Polyethylene Glycol 17 gm 03/15/21 09:00 Polyethylene Glycol 3350 17 Gm Powd.Pack PO QAM MIKHIAL Senna/Docusate Sodium 2 tab 03/14/21 17:00 03/14/21 17:53 Senna/Docusate Sodium Tablet PO 2 tab BID MIKHAIL Administration Radiology Results: ITS Impressions Hip/Pelvis X-Ray
[2021-03-15] MEDS: LACTATED RINGERS 1,000 ML 100 ML IV CONT ×2 (06:55→18:31)
[2021-03-15] MEDS: SENNA/DOCUSATE SODIUM TABLET 2 TAB PO ×2 (09:30→18:30)
[2021-03-15] MEDS: oxyCODONE HCL (*CRX) 5 MG TAB IR PO ×4 (09:30→20:23)
[2021-03-15] MEDS: APIXABAN 2.5 MG TABLET PO ×2 (09:30→20:23)
[2021-03-15] MEDS: polyethylene glycoL 3350 17 GM POWD.PACK PO (09:30)
[2021-03-15] MEDS: ATORVASTATIN 40 MG TABLET PO (09:30)
[2021-03-15 10:00] VITALS: BP 112/75; PULSE 73; RESP 18; TEMP 37.1; O2SAT 97
--- NOTE | 2021-03-15 10:32 | PM.CNNEP ---
Assessment and Plan Assessment and plan (1) Elevated serum creatinine: Code(s): R79.89 - Other specified abnormal findings of blood chemistry Status: Acute Assessment and Plan: elevated this AM normal baseline creatinine likely related to urinary retention -- bladder scan noted voiding at this time -- follow urine output suspect urinary retention secondary to anesthesia follow repeat labs -- if creatinine continues to rise, will proceed with further evaluation/testing (2) Osteoarthritis of left hip: Code(s): M16.12 - Unilateral primary osteoarthritis, left hip Status: Chronic Assessment and Plan: s/p total left hip arthroplasty post-op care as outlined by Orthopedic Surgery Will continue to follow. History of Present Illness Reason for Consult Consult date: 03/15/21 Reason for consult: acute renal failure Chief Complaint Chief complaint: Severe OA Left Hip History of Present Illness Narrative: The patient is a 81 year old male with a past medical history as outlined below who was directly admitted to [facility] following his total left hip replacement by Dr. Maradiaga on 03/14/21. The patient has been having issues and problems with his left hip for quite a while now and unfortunately, conservative therapy has failed to improve this condition. As the pain was getting worse and worse and affecting his activities of daily living, it was recommended he undergo hip replacement surgery as a definitive treatment for this problem. He successfully had this intervention done yesterday. However, postoperatively, it was noted that he was having difficulty urinating and his labs this morning showed his creatinine to be higher than baseline. He was started on IV fluids but it should be noted as bladder scan showed a significant amount of urinary retention which was relieved when he was able to urinate not too long ago. He otherwise appears to be doing better currently. Renal consultation was requested due to the elevated creatinine as noted by his a.m. labs. From review his records, he has no history or issues with regard to renal dysfunction although he does report he has had issues and problems with BPH and prostate cancer in the past. However, prior to this operative intervention, he never had any issues or problems with urinary retention, hesitancy, dribbling, frequent urinary tract infections, that at that except her up. It is felt that his urinary retention noted earlier this morning was probably related to anesthesia /drug issue since he appears to be urinating quite well at this time. Currently, at the time my visit, he appears in no acute distress. Review of Systems Review of Systems: As per HPI. [facility] Past Medical History Medical History Compression fracture of lumbar vertebra High cholesterol History of prostate cancer 2008, radiation seeds Surgical History Surgical History H/O hand surgery History of carpal tunnel release History of cholecystectomy Family History Family History Sibling Patient's sister is in good health Family history of hepatitis, Onset Age: 50 Patient's brother is Mother Acute myocardial infarction, Onset Age: 89 Patient's mother is Heart disease Father Patient's father is Acute myocardial infarction Heart disease Social History Social History (Updated 03/15/21 @ 10:53 by PETR Nolan) Social History: Patient lives alone in a one story home with his cat. He has several brothers and sisters and has picked his brother Yordy or sister Marita to be his surrogate if he was unable to make his own decision. He also wishes to be a full code at this time. Smoking packs per day: 0.5
--- NOTE | 2021-03-15 10:34 | PM.IMCN ---
Assessment and Plan Assessment and plan (1) Osteoarthritis of left hip: Code(s): M16.12 - Unilateral primary osteoarthritis, left hip Status: Chronic Assessment and Plan: Left hip replacement done 03/14/21 Managed by ortho Pain: Morphine 2mg IV Q4hr PRN, Roxicodone 2.5mg PO Q4hr PRN/GABRIELLE, Tylenol 1000mg PO Q8hr Gabrielle Antiemetic: Zofran 4mg IV Q4hr PRN Bowel: Senna 2 tab BID, MOM 30ml BID PRN, Mylanta 30ml PO Q6hr PRN Cefazolin 1gm IV x 3 bags DVT Eliquis PT and OT (2) COLEEN (acute kidney injury): Code(s): N17.9 - Acute kidney failure, unspecified Status: Acute Assessment and Plan: Creatinine 1.30 Elevated compared to admission Trend labs Labs in the am LR at 100ml/hr for hydration (3) BPH (benign prostatic hyperplasia): Code(s): N40.0 - Benign prostatic hyperplasia without lower urinary tract symptoms Status: Acute Assessment and Plan: HX of BPH Ortho consulted nephrology Might need to get urology involved if problem becomes acute Patient was able to urinate with standing and going in the bathroom (4) GERD (gastroesophageal reflux disease): Code(s): K21.9 - Gastro-esophageal reflux disease without esophagitis Status: Acute Assessment and Plan: Patient exam omeprazole 20 mg p.o. daily at home While in-patient will place patient on famotidine 20 mg p.o. daily (5) HLD (hyperlipidemia): Code(s): E78.5 - Hyperlipidemia, unspecified Status: Acute Assessment and Plan: Continue home atorvastatin 40 mg p.o. daily HPI Data of Consult Consult date: 03/16/21 Requesting Physician: Eric Maradiaga MD Primary Care Provider: Eboni Oneill MD Consult Narrative Narrative: Date of service 03/15/21 09:38 Slava Govea Jr. is a 81 year old male with a past medical history of GERD and HLD that was scheduled to have an total left hip replacement by Dr. Maradiaga on 03/14/21. Patient stated that he has been having trouble over the last year. He stated that he went to have his hip evaluated and the right hip showed to be in good standing while the left hip was deteriorated. He stated they were unaware of how this could of happened, however, in 2008 he was noted to have BPH. He stated that he went to Dr. Connolly for treatment and they put radiation to the prostate to shrink it, which he stated that her had 113 treatments done to it. Since then his PSA has been 0.1. He currently stated that he is having pain on the left hip which he rates to be a 7-8/10. He was also up in the chair and did use the bathroom. He also stated that he was having a hard time urinating this morning, however, it was because he was sitting on the side of the bed. When he was able to go into the bathroom, he did have a decent time and was able to fully empty. He did deny urinary dysfunction, chest pain, shortness of breath, weakness, fatigue, fever, chills, sweats, or any other symptoms. Review of Systems Review of Systems: All systems reviewed & are unremarkable except as noted in HPI and below PMFSH Past Medical History Medical History Compression fracture of lumbar vertebra High cholesterol History of prostate cancer 2008, radiation seeds Surgical History Surgical History H/O hand surgery History of carpal tunnel release History of cholecystectomy Family History Family History Sibling Patient's sister is in good health Family history of hepatitis, Onset Age: 50 Patient's brother is Mother Acute myocardial infarction, Onset Age: 89 Patient's mother is Heart disease Father Patient's father is Acute myocardial infarction Heart disease Social History Social Hi
[2021-03-15 14:28] VITALS: BP 138/43; PULSE 80; RESP 16; TEMP 37.2; O2SAT 99
--- NOTE | 2021-03-15 14:50 | WPDANESPN ---
Anes - Prog Note Post-Op Date/Time: 03/15/21 14:50 Cardiovascular status: normal Respiratory status: normal Airway patency: baseline Mental status: baseline Post-Op hydration status: normal Vital Signs: Last Vital Signs Temp 37.2 C 03/15/21 14:28 Pulse 80 03/15/21 14:28 Resp 16 03/15/21 14:28 BP 138/43 L 03/15/21 14:28 Pulse Ox 99 03/15/21 14:28 Pain Score (VAS): 2 I/O: Intake & Output 03/14/21 03/15/21 03/15/21 23:59 07:59 15:59 Intake Total 540 50 540 Output Total 400 450 Balance 540 -350 90 Laboratory Tests 03/15/21 05:13 03/15/21 05:13 03/15/21 03/15/21 03/15/21 05:11 05:13 05:13 WBC 10.2 H RBC 2.93 L Hgb 8.9 L Hct 28.0 L MCV 95.6 MCH 30.4 MCHC 31.8 L RDW 14.6 H Plt Count 210 MPV 9.2 Immature Gran % (Auto) 0.6 H Neut % (Auto) 74.8 H Lymph % (Auto) 14.7 L [place] % (Auto) 9.4 H Eos % (Auto) 0.1 Baso % (Auto) 0.4 Lymph # (Auto) 1.49 [place] # (Auto) 1.0 H Eos # (Auto) 0.0 Baso # (Auto) 0.0 Abs Immat Gran (auto) 0.06 H Absolute Neuts (auto) 7.6 H Absolute Nucleated RBC 0.0 Nucleated RBC % 0.0 Sodium 135 L Potassium 3.8 Chloride 106 Carbon Dioxide 22 Anion Gap 7 L BUN 16 Creatinine 1.30 Estim Creat Clear Calc 42 Estimated GFR 53 L Glucose 139 H Calcium 8.5 Vit D 1,25-Dihyd Total Pending 1,25 Dihydroxy Vit D2 Pending 1,25 Dihydroxy Vit D3 Pending Post-procedural complaints: none Patient Feedback: Patient satisfied with anesthetic care.
[2021-03-15 20:00] VITALS: PULSE 87; RESP 20; O2SAT 97
[2021-03-15] MEDS: FAMOTIDINE 20 MG TABLET PO (20:24)
[2021-03-15 20:42] VITALS: BP 162/61; PULSE 87; RESP 20; TEMP 38.4; O2SAT 97
[2021-03-16] MEDS: oxyCODONE HCL (*CRX) 5 MG TAB IR PO ×4 (01:17→12:47)
[2021-03-16] MEDS: LACTATED RINGERS 1,000 ML 100 ML IV CONT (04:26)
[2021-03-16 05:02] VITALS: BP 127/57; PULSE 87; RESP 20; TEMP 38.1; O2SAT 92
[2021-03-16] MEDS: ACETAMINOPHEN 500 MG TABLET 1000 MG PO ×2 (05:03→14:56)
[2021-03-16 05:44] LABS: Basophils Percent Auto 0.4 % (0.2-1.2); Eosinophils Absolute Auto 0.2 K/mm3 (0-0.3); Eosinophils Percent Auto 2.1 % (0-4.4); Hematocrit 27.1 % (42.0-52.0); Hemoglobin 8.7 g/dL (14.0-18.0); Immature Granulocyte Absolute 0.04 K/mm3 (0.00-0.031); Immature Granulocyte Percent A 0.5 % (0-0.5); Mean Corpuscular HGB Conc 32.1 g/dl (32-36); Mean Corpuscular Hemoglobin 30.1 pg (26-34); Mean Corpuscular Volume 93.8 fl (80-100); Mean Platelet Volume 9.3 fl (7.4-10.4); Monocytes Absolute Auto 0.7 K/mm3 (0.1-0.6); Monocytes Percent Auto 8.2 % (2.6-8.5); Neutrophils Absolute Auto 5.9 K/mm3 (1.3-6.7); Neutrophils Percent Auto 71.8 % (45.5-73.1); Platelet Count Result 207 k/mm3 (150-375); Red Blood Count 2.89 M/mm3 (4.6-6.20); Red Cell Distribution Width 14.5 % (11.5-14.5); White Blood Count 8.2 K/mm3 (4.5-10.0)
[2021-03-16 05:53] LABS: Anion Gap 5 mmol/L (8-16); Blood Urea Nitrogen 16 mg/dL (9-20); Calcium 8.9 mg/dL (8.4-10.2); Carbon Dioxide 23 mmol/L (22-30); Chloride 109 mmol/L (98-107); Estimated CRCL calculation 60 ml/min; Estimated Glomerular Filt Rate > 60; Glucose 96 mg/dL (65-110); Potassium 4.1 mmol/L (3.4-5.0); Sodium 137 mmol/L (137-145)
[2021-03-16] MEDS: ATORVASTATIN 40 MG TABLET PO (08:16)
[2021-03-16] MEDS: SENNA/DOCUSATE SODIUM TABLET 2 TAB PO (08:16)
[2021-03-16] MEDS: APIXABAN 2.5 MG TABLET PO (08:16)
--- NOTE | 2021-03-16 09:09 | PM.PNORT ---
Progress Note: A&P Additional Plan Postop day 2 patient is doing better. He has been afebrile and vital signs been stable. His creatinine is back down to .99. Hemoglobin 8.7 and is stable from yesterday. Wound is dry. Minimal swelling in the thigh. Patient has been urinating very well throughout the day yesterday. He has had over 1200 cc output. Nephrology has seen him and does not recommend any additional testing at this point unless he continues to problems. Overall pain is well controlled. We will plan to discharge the patient today. We will not utilize Celebrex on him, the concern is whether his kidney function is completely normal given the fact that he had the bump. Because of that we will avoid anti-inflammatories with him. We will have the patient work with therapy this morning and plan to discharge to home around noon today. Subjective Subjective Date/Time Seen: 03/16/21 09:09 Objective Data Vital Signs Vital Signs: Vital Signs - 24 hr 03/15/21 10:00 03/15/21 14:28 03/15/21 20:00 Temperature 37.1 C 37.2 C Pulse Rate 73 80 87 Respiratory Rate 18 16 20 Blood Pressure 112/75 138/43 L Pulse Oximetry 97 99 97 03/15/21 20:42 03/16/21 05:02 Temperature 38.4 C H 38.1 C H Pulse Rate 87 87 Respiratory Rate 20 20 Blood Pressure 162/61 H 127/57 L Pulse Oximetry 97 92 Intake/Output Intake/Output: Intake & Output 03/13/21 03/14/21 03/15/21 03/16/21 23:59 23:59 23:59 23:59 Intake Total 1040 1790 1430 Output Total 0 1100 550 Balance 1040 690 880 Meds/Results Medications: Active Medications Generic Name Dose Route Start Last Admin Trade Name Freq PRN Reason Stop Dose Admin Acetaminophen 1,000 mg 03/15/21 14:00 03/16/21 05:03 Acetaminophen 500 Mg Tablet PO 1,000 mg Q8HR MIKHAIL Administration Al Hydrox/Mg Hydrox/Simethicone 30 ml 03/14/21 12:43 Mag Hydrox/Al Hydrox/Simeth 30 Ml Udc PO Q6H PRN Indigestion Apixaban 2.5 mg 03/15/21 09:00 03/16/21 08:16 Apixaban 2.5 Mg Tablet PO 04/18/21 21:01 2.5 mg Q12HR MIKHAIL Administration Atorvastatin Calcium 40 mg 03/15/21 09:00 03/16/21 08:16 Atorvastatin 40 Mg Tablet PO 40 mg QAM MIKHAIL Administration Famotidine 20 mg 03/15/21 21:00 03/15/21 20:24 Famotidine 20 Mg Tablet PO 20 mg HS MIKHAIL Administration Hydroxyzine HCl 50 mg 03/14/21 12:43 Hydroxyzine Hcl 25 Mg Tablet PO Q4H PRN Itching Magnesium Hydroxide 30 ml 03/14/21 12:43 Magnesium Hydroxide Susp 30 Ml Udc PO BID PRN Constipation Morphine Sulfate 2 mg 03/14/21 12:43 Morphine Sulfate (*Crx) 2 Mg/Ml Inj IV PUSH Q4H PRN Pain Rated 7-10 Naloxone HCl 0.1 mg 03/14/21 12:43 Naloxone Hcl 0.4 Mg/Ml Vial IV PUSH Q2M PRN Opiate Reversal Ondansetron HCl 4 mg 03/14/21 12:43 Ondansetron Inj 4 Mg/2 Ml Vial IV PUSH Q4H PRN Nausea And Vomiting Oxycodone HCl 2.5 mg 03/14/21 12:43 Oxycodone Hcl (*Crx) 2.5 Mg Tab Ir PO Q4H PRN Pain Rated 4-6 Oxycodone HCl 5 mg 03/15/21 09:00 03/16/21 08:16 Oxycodone Hcl (*Crx) 5 Mg Tab Ir PO 5 mg Q4HR MIKHAIL Administration Polyethylene Glycol 17 gm 03/15/21 09:00 03/15/21 09:30 Polyethylene Glycol 3350 17 Gm Powd.Pack PO 17 gm QAM MIKHAIL Administration Senna/Docusate Sodium 2 tab 03/14/21 17:00 03/16/21 08:16 Senna/Docusate Sodium Tablet PO 2 tab BID MIKHAIL Administration Radiology Results: ITS Impressions Hip/Pelvis X-Ray 03/14/21 12:11 IMPRESSION: 1. Total left hip arthroplasty in near-anatomic alignment. 2. Mild right hip osteoarthritis. Intraoperative X-Ray 03/14/21 12:12 IMPRESSION: 1. Total left hip arthroplasty in near-anatomic alignment. Labs Labs: Laboratory Results - last 24 hr 08/11/21 08/11/21 05:28 05:28 WBC 8.2 RBC 2.89 L Hgb 8.7 L Hct 27.1 L MCV 93.8 MCH 30.1 MCHC 32.1 RDW 14.5 Plt Count 207 MPV 9.3 Immature Gran % (Auto) 0.5
--- NOTE | 2021-03-16 10:18 | PM.DS ---
DS: Admitting Diagnosis Admitting Diagnosis left hip DJD DS: Summary Hospital Course Hospital Course: overall stable, had elevation of Cr on POD that resolved on POD 2 with fluids, Time Spent with Patient Time attestation: Total time spent providing and/or coordinating discharge services: 81-year-old male who underwent left anterior total arthroplasty on 03/14/2021. He underwent the procedure without complications. He he did have a brief issue of hypertension preoperatively but this quickly corrected during time of surgery and since that time he has been afebrile vital signs been stable. He did not urinate after surgery, when I saw him early postop day 1 he is still had not urinated. He had a bladder scan done which showed 700 cc and once they stood him up he was able urinate 400 cc out. His creatinine jumped to 1.39 on postop day 1. Preop he was 0.99. He was kept for an additional night because of these factors. IV fluids were maintained, medications including Celebrex and Pepcid for all decreased due to the renal issue. Nephrology was consulted. They did not feel that any additional testing was needed. During postop day 1 patient was ambulatory and was able to urinate multiple times and was feeling overall well improved. His pain is well controlled with Tylenol as well as oxycodone. He is on Eliquis for DVT prophylaxis. Postop day 2 his creatinine was back to baseline at 0.99. His hemoglobin was 8.7, the day prior he was 8.9 so this is stable. He will be discharged to home on 03/16. He is weight-bearing as tolerated. He is to keep the leg elevated 0 prevent swelling. He is also being sent home with MiraLax and Senokot for constipation. Patient was advised any questions or concerns he should call the office otherwise we will see him at his appoint date. Again we are going to not use Celebrex on him due to the concern of his overall kidney function. DS: Data Data Completed and Pending Labs on day of discharge: Labs from last 24 hours 03/16/21 03/16/21 05:28 05:28 WBC 8.2 RBC 2.89 L Hgb 8.7 L Hct 27.1 L MCV 93.8 MCH 30.1 MCHC 32.1 RDW 14.5 Plt Count 207 MPV 9.3 Immature Gran % (Auto) 0.5 Neut % (Auto) 71.8 Lymph % (Auto) 17.0 L [place] % (Auto) 8.2 Eos % (Auto) 2.1 Baso % (Auto) 0.4 Lymph # (Auto) 1.40 [place] # (Auto) 0.7 H Eos # (Auto) 0.2 Baso # (Auto) 0.0 Abs Immat Gran (auto) 0.04 H Absolute Neuts (auto) 5.9 Absolute Nucleated RBC 0.0 Nucleated RBC % 0.0 Sodium 137 Potassium 4.1 Chloride 109 H Carbon Dioxide 23 Anion Gap 5 L BUN 16 Creatinine 0.90 Estim Creat Clear Calc 60 Estimated GFR > 60 Glucose 96 Calcium 8.9 Discharge Plan Discharge Attending physician on discharge: Juanita Oconnor Consulting providers: Toro Marrufo ; Rosalia Martinez Discharging Clinician: Huey Canchola Anticipated Discharge Date/Time: 03/16/21 12:37 Patient Disposition: Home, Self-Care Activity: may shower, follow weight bearing status and other - see discharge instructions Diet: as tolerated Wound Care Instructions: follow printed instructions Discharge Instructions: JUANITA OCONNOR M.D [facility] [address] [place] [id number] POST-OPERATIVE DISCHARGE INSTRUCTIONS ANTERIOR TOTAL HIP ARTHROPLASTY 1. Move toes/feet up and down every hour while awake. 2. Be up walking every hour while awake. 3. Use cane in hand opposite of side of hip surgery or walker as comfort allows. Avoid sitting in a chair unless eating, receiving visitors or using the toilet. 4. When resting, lie on back with leg elevated above heart to minimize swelling. Significant swelling could indicate a blood clot and if this occurs, call the office (or go to the ER) to have a venous ultrasound performed. 5. Wound Care: Keep dry sponge on wound for 2 weeks. Use minimal tape. 6. F
[2021-03-16] MEDS: polyethylene glycoL 3350 17 GM POWD.PACK PO (10:29)
--- NOTE | 2021-03-16 12:08 | WPDHPUPDATE1 ---
History and Physical Update Update Date/Time: 03/16/21 12:08 History and Physical has been reviewed, including an updated exam of the patient. There are NO changes in the patient's condition. Risks, benefits, and alternatives have been discussed and questions answered. Patient agrees to proceed with procedure.
--- NOTE | 2021-03-16 13:56 | PM.IMPN ---
Progress Note: A&P Assessment and Plan (1) Osteoarthritis of left hip: Code(s): M16.12 - Unilateral primary osteoarthritis, left hip Status: Chronic Assessment and Plan: Left hip replacement done 03/14/21 Managed by ortho Pain: Morphine 2mg IV Q4hr PRN, Roxicodone 2.5mg PO Q4hr PRN/GABRIELLE, Tylenol 1000mg PO Q8hr Gabrielle Antiemetic: Zofran 4mg IV Q4hr PRN Bowel: Senna 2 tab BID, MOM 30ml BID PRN, Mylanta 30ml PO Q6hr PRN Cefazolin 1gm IV x 3 bags DVT Eliquis PT and OT (2) COLEEN (acute kidney injury): Code(s): N17.9 - Acute kidney failure, unspecified Status: Acute Assessment and Plan: Creatinine 1.30 Elevated compared to admission Trend labs Labs in the am LR at 100ml/hr for hydration (3) BPH (benign prostatic hyperplasia): Code(s): N40.0 - Benign prostatic hyperplasia without lower urinary tract symptoms Status: Acute Assessment and Plan: HX of BPH Ortho consulted nephrology Might need to get urology involved if problem becomes acute Patient was able to urinate with standing and going in the bathroom (4) GERD (gastroesophageal reflux disease): Code(s): K21.9 - Gastro-esophageal reflux disease without esophagitis Status: Acute Assessment and Plan: Patient is on omeprazole 20 mg p.o. daily at home While in-patient will place patient on famotidine 20 mg p.o. daily (5) HLD (hyperlipidemia): Code(s): E78.5 - Hyperlipidemia, unspecified Status: Acute Assessment and Plan: Continue home atorvastatin 40 mg p.o. daily Subjective Date/time seen: 03/16/21 12:57 Interval history: Slava Govea Jr. is a 81 year old male with a past medical history of GERD and HLD that was scheduled to have an total left hip replacement by Dr. Maradiaga on 03/14/21. Patient stated he was going home today and was feeling fine. He said his pain is controlled. He also stated that he feels great just a little tired and he was at that time taking a nap. Patient denies chest pain, shortness of breath, fevers, sweats, chills. Review of Systems Review of Systems: All systems reviewed & are unremarkable except as noted in HPI and below Exam Const: General: cooperative, healthy appearing, comfortable, no acute distress, well developed, alert, awake and Physically active Nutritional Appearance: average body habitus and well nourished Orientation/consciousness: oriented to person, oriented to place, oriented to time and patient oriented x3 Limitations: physical limitations (recent hip replacement) HENMT: Head: normal to inspection Ears: hearing grossly normal bilaterally General nose exam: Normal external nose present Mouth: Yes Normal oral and palatal mucosa present, Yes lip normal and Yes tongue normal Teeth and gingiva: abnormal tooth and associated gingiva and poor dentition Eyes: General: appearance normal, both eyes and all related structures Neck: Neck: normal visual inspection, full ROM, trachea midline and supple Chest: Chest palpation & inspection: normal inspection of the chest Resp: Effort & Inspection: normal respiratory effort and able to speak in complete sentences Auscultation: clear to auscultation bilaterally Cardio: Jugular venous distension: no JVD Rate: regular rate Rhythm: regular rhythm Heart sounds: S1 normal heart sound present and S2 normal heart sound present Peripheral pulses: Peripheral pulses 2+ throughout GI: Inspection: normal to inspection Auscultation: normal bowel sounds Skin: General skin exam: normal color and no rashes or lesions noted Lesions: no lesions Rashes: no rashes Wounds: wounds noted Hair: normal Nails: normal Neuro: General: oriented to person, oriented to place, oriented to time, patient oriented x3, moves all extremities and Normal light touch and pain sensation Speech: normal speech Gait exam (Neuro): Normal gait present Extrem: General: normal
[2021-03-16 14:00] VITALS: BP 172/72; PULSE 102; RESP 18; TEMP 37.1; O2SAT 96
[2021-03-18 22:59] LABS: Vitamin D 1,25 (OH)2 Total 40 pg/mL (18-72); Vitamin D2 1,25 (OH)2 <8 pg/mL; Vitamin D3 1,25 (OH)2 40 pg/mL
== END 2021-03-16 17:05 | disposition home or self-care (01) | DRG 470 ==
LOC: ANHSURGERY 13:47 → ANH2MED 13:47 → ANHSURGERY 13:47 → ANH2MED 13:48
PROVIDERS: Physician Assistant Surgical; Admitting Provider Orthopaedic Surgery; PCP Internal Medicine; Visit Provider Orthopaedic Surgery
PROC: 0SRB02A Replacement of Left Hip Joint with Metal on Polyethylene Synthetic Substitute, Uncemented, Open Approach (ICD-10-PCS; CPT 27130; principal; 2021-03-14 07:30)
DX: M16.12 Unilateral primary osteoarthritis, left hip (principal); N17.9 Acute kidney failure, unspecified; N40.0 Benign prostatic hyperplasia without lower urinary tract symptoms; K21.9 Gastro-esophageal reflux disease without esophagitis; E78.5 Hyperlipidemia, unspecified; Z79.82 Long term (current) use of aspirin; Z79.899 Other long term (current) drug therapy; Z85.46 Personal history of malignant neoplasm of prostate; Z87.891 Personal history of nicotine dependence
CPT/HCPCS: 36415; 73501; 80048; 82652; 85014; 85018; 85025; 97110; 97116; 97161; 97165; 97530; 97535; A9270; C1776; J0171; J0690; J1100; J1170; J1885; J2270; J2405; J2704; J2710; J2795; J3010; J3370; J7030; J7120

== ENCOUNTER 2021-06-27 14:35 | Outpatient (CLI) | payer MEDICARE, OTHER, SELFPAY ==
--- NOTE | ~2021-06-27 | XR_ITS ---
EXAMINATION: XR knee LT 3V DATE: 06/27/2021 15:04 INDICATION: Left knee injury and pain. TECHNIQUE: 3 views of left knee were obtained. COMPARISON: None. FINDINGS: Bone alignment is normal. There is a stellate fracture of patella in near-anatomic alignmen t. There is mild tricompartmental osteoarthritis. There is a small knee joint effusion. Prepatellar s oft tissue swelling is noted. IMPRESSION: 1. Stellate fracture of patella. 2. Mild left knee osteoarthritis. 3. Small left knee joint effusion. Reviewed, dictated and finalized at location B. 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
== END 2021-06-27 14:36 | disposition home or self-care (01) ==
LOC: CHSIMG 14:37
PROVIDERS: PCP Internal Medicine; Visit Provider Internal Medicine
DX: S89.92XA Unspecified injury of left lower leg, initial encounter (principal)
CPT/HCPCS: 73562

== ENCOUNTER 2021-07-06 13:27 | Outpatient (CLI) | payer MEDICARE, SELFPAY ==
[2021-07-06 15:01] LABS: Influenza A QL RT-PCR Negative (Negative); Influenza B QL RT-PCR Negative (Negative); SARS-CoV-2 RNA PCR Negative (Negative)
== END 2021-07-06 13:28 | disposition home or self-care (01) ==
LOC: CHSLAB 13:30
PROVIDERS: PCP Internal Medicine; Visit Provider Internal Medicine
DX: J06.9 Acute upper respiratory infection, unspecified (principal); Z20.822 Contact with and (suspected) exposure to COVID-19
CPT/HCPCS: 87081; 87502; 87880; C9803; U0003; U0005

== ENCOUNTER 2021-07-27 08:57 | Outpatient (CLI) | payer MEDICARE, OTHER, SELFPAY ==
--- NOTE | ~2021-07-27 | XR_ITS ---
XR knee LT 3V DATE: 07/27/2021 09:36 INDICATION: Fracture follow-up TECHNIQUE: 3 views COMPARISON: 06/27/2021 left knee FINDINGS: Virtually nondisplaced patellar fracture is again noted without interval change in position or alignment since 06/27/2021. The suprapatellar knee joint effusion appears resolved since 06/27/20 21. No other fracture or dislocation. Joint spaces are relatively well preserved. No radiopaque intra-art icular loose body or chondrocalcinosis. Osteopenia. IMPRESSION: No significant change in position or alignment at the patellar fracture Reviewed, dictated and finalized at location B. [employer]ER IMPRESSION: No significant change in position or alignment at the patellar frac ture
== END 2021-07-27 08:58 | disposition home or self-care (01) ==
LOC: CHSLAB 09:00
PROVIDERS: PCP Internal Medicine; Visit Provider Internal Medicine
DX: S82.002D Unspecified fracture of left patella, subsequent encounter for closed fracture with routine healing (principal)
CPT/HCPCS: 73562

== ENCOUNTER 2021-08-02 10:29 | Outpatient (CLI) | payer MEDICARE, SELFPAY ==
[2021-08-02 11:47] LABS: SARS-CoV-2 RNA PCR Negative (Negative)
== END 2021-08-02 10:30 | disposition home or self-care (01) ==
LOC: CHSLAB 10:33
PROVIDERS: PCP Internal Medicine; Visit Provider Internal Medicine
DX: Z20.822 Contact with and (suspected) exposure to COVID-19 (principal)
CPT/HCPCS: C9803; U0003; U0005

== ENCOUNTER 2021-09-01 07:56 | Outpatient (CLI) | payer MEDICARE, SELFPAY ==
[2021-09-01 08:21] LABS: Basophils Absolute Auto 0.06 K/mm3 (0.00-0.10); Eosinophils Absolute Auto 0.29 K/mm3 (0.02-0.50); Hematocrit 42.4 % (37.0-46.0); Hemoglobin 13.7 g/dL (12.4-15.3); Immature Granulocyte Absolute 0.02 K/mm3 (0.00-0.00); Immature Granulocyte Percent A 0.3 % (0.0-0.0); Lymphocytes Absolute Auto 1.88 K/mm3 (1.10-4.50); Lymphocytes Percent Auto 32.6 % (18.0-42.0); Mean Corpuscular HGB Conc 32.3 g/dL (32.0-36.0); Mean Corpuscular Hemoglobin 28.9 pg (27.0-31.0); Mean Corpuscular Volume 89.5 fL (78.0-102.0); Mean Platelet Volume 9.1 fl (8.7-11.0); Monocytes Percent Auto 6.9 % (2.0-11.0); Neutrophils Absolute Auto 3.1 K/mm3 (1.7-7.2); Neutrophils Percent Auto 54.2 % (50.0-70.0); Platelet Count Result 259 K/mm3 (150-420); Red Blood Count 4.74 M/mm3 (4.70-6.10); White Blood Count 5.8 K/mm3 (4.8-10.8)
[2021-09-01 08:29] LABS: Hemoglobin A1C 5.6 % (<5.7)
[2021-09-01 09:15] LABS: Alanine Aminotransferase 28 U/L (16-63); Albumin Level 3.7 g/dL (3.4-5.0); Alkaline Phosphatase 122 U/L (46-116); Anion Gap 8 mmol/L (8-16); Aspartate Amino Transferase 35 U/L (15-37); Bilirubin,Total 0.6 mg/dL (0.00-1.00); Blood Urea Nitrogen 15 mg/dL (7-18); Calcium 9.3 mg/dL (8.5-10.1); Carbon Dioxide 26 mmol/L (21-32); Chloride 107 mmol/L (98-108); Cholesterol 153 mg/dL (0-200); Creatine Kinase 59 U/L (39-308); Estimated Glomerular Filt Rate > 60; Ferritin 58 ng/mL (26-388); Free T3 2.52 pg/mL (2.18-3.98); Free T4 Free Thyroxine 0.79 ng/dL (0.76-1.46); Glucose 93 mg/dL (70-99); HDL Direct 61 mg/dL (40-60); Iron 67 ug/dL (65-175); LDL Cholesterol Calculated 78 mg/dL (<130); Osmolality Calculated 292 mOsm/kg (285-295); Potassium 4.7 mmol/L (3.5-5.1); Sodium 141 mmol/L (136-145); Thyroid Stimulating Hormone 3.96 uIU/mL (0.36-3.74); Total Protein 7.1 g/dL (6.4-8.2); Triglycerides 71 mg/dL (0-150)
[2021-09-01 12:30] LABS: Add Urine Microscopic? NO; Appearance Urine Clear (Clear); Bilirubin Urine Negative (Negative); Blood Urine Negative (Negative); Color Urine Yellow (Yellow); Glucose Urine UA Negative (Negative); Ketones Urine Negative (Negative); Leukocyte Esterase Ur Negative LEU/UL (Negative); Nitrate Urine Negative (Negative); Protein Urine Negative (Negative); Specific Grav Ur >= 1.030 (1.010-1.020); Urobilinogen Urine 0.2 mg/dL (0.2-1.0); pH Urine 5.5 (5.0-8.0)
[2021-09-01 12:53] LABS: Creatinine Urine 258.67 mg/dL (40-278); MALB Creatinine Ratio 8.3 mg/g (0-30); Microalbumin Urine Random 21.5 mg/L
[2021-09-05 03:11] LABS: Thyroxin Binding Globulin 24.6 mcg/mL (12.7-25.1)
[2021-09-05 03:52] LABS: Thyroid Peroxidase Antibodies <1 IU/mL (<9)
== END 2021-09-01 07:57 | disposition home or self-care (01) ==
LOC: CHSLAB 07:58
PROVIDERS: PCP Internal Medicine; Visit Provider Internal Medicine
DX: E78.5 Hyperlipidemia, unspecified (principal); R31.29 Other microscopic hematuria; E03.9 Hypothyroidism, unspecified; D50.9 Iron deficiency anemia, unspecified; R73.01 Impaired fasting glucose
CPT/HCPCS: 36415; 80053; 80061; 81003; 82043; 82550; 82728; 83036; 83540; 84439; 84442; 84443; 84481; 85025; 86376

== ENCOUNTER 2021-11-11 09:35 | Outpatient (CLI) | payer MEDICARE, OTHER, SELFPAY ==
--- NOTE | 2021-11-11 09:50 | PC.NURSE ---
Pt to room amb. A&Ox3. Pt has no questions or complaints. Oriented to room. Medication education given, pt signed consent. Oriented to room. Call fonseca in reach. Reminded to call with needs.
[2021-11-11 10:00] VITALS: BP 158/88; PULSE 78; RESP 20; O2SAT 98
[2021-11-11] MEDS: diphenhydrAMINE HCl CAP 25 MG CAPSULE PO (10:03)
[2021-11-11] MEDS: FAMOTIDINE 20 MG TABLET PO (10:03)
[2021-11-11] MEDS: ACETAMINOPHEN 325 MG TABLET 650 MG PO (10:03)
[2021-11-11] MEDS: BEBTELOVIMAB 175 MG/2 ML VIAL IV PUSH (10:06)
--- NOTE | 2021-11-11 10:59 | PC.NURSE ---
Pt tolerated medication well. Has no questions or complaints. Discharged to home amb per self.
== END 2021-11-11 09:36 | disposition home or self-care (01) ==
PROVIDERS: PCP Internal Medicine; Visit Provider Nurse Practitioner Family
DX: U07.1 COVID-19 (principal)
CPT/HCPCS: 96374; A9270; M0222; Q0222

== ENCOUNTER 2021-11-22 09:25 | Outpatient (CLI) | payer MEDICARE, OTHER, SELFPAY ==
--- NOTE | ~2021-11-22 | MR_ITS ---
EXAMINATION: MR lumbar spine wo con DATE: 11/22/2021 10:20 INDICATION: Lumbar radiculopathy. Low back pain radiating down the left leg. TECHNIQUE: Magnetic resonance imaging (MRI) of the lumbar spine was performed without intravenous con trast. Sequences included sagittal T2-weighted FSE, sagittal T2-weighted FS FSE, sagittal T1-weighted FSE, and axial T2-weighted FSE. COMPARISON: None FINDINGS: There is 9 degrees levocurvature of lumbar spine. There is 6 mm anterolisthesis of L4 on L5 . There is moderately decreased disc height at L4-L5 and mildly decreased disc height at L5-S1. The d istal spinal cord signal intensity is normal. The conus medullaris is at T12-L1. The following disc l evels are specifically discussed: L1-L2: The disc does not extend beyond the endplate margin. There is mild bilateral facet joint osteo arthritis. There is no neural foraminal stenosis. There is no central canal stenosis. L2-L3: The disc is mildly bulging. There is severe bilateral facet joint osteoarthritis. There is mil d bilateral neural foraminal stenosis. There is no central canal stenosis. L3-L4: The disc does not extend beyond the endplate margin. There is severe right and moderate left f acet joint osteoarthritis. There is no neural foraminal stenosis. There is no central canal stenosis. L4-L5: The disc is bulging and has an annular fissure. There is severe bilateral facet joint osteoart hritis. There is hypertrophy of the ligamentum flavum. There is mild bilateral neural foraminal steno sis. There is mild central canal stenosis. There is moderate stenosis of the lateral recesses. L5-S1: The disc is bulging. There is severe bilateral facet joint osteoarthritis. There is mild bilat eral neural foraminal stenosis. There is mild central canal stenosis. IMPRESSION: 1. Moderate lumbar spondylosis. Reviewed, dictated and finalized at location B.
== END 2021-11-22 09:26 | disposition home or self-care (01) ==
LOC: CHSIMG 09:27
PROVIDERS: PCP Internal Medicine; Visit Provider Internal Medicine
DX: M54.16 Radiculopathy, lumbar region (principal)
CPT/HCPCS: 72148

== ENCOUNTER 2022-01-19 01:58 | Day surgery (SDC) | payer MEDICARE, OTHER, SELFPAY ==
[2022-01-10 09:20] VITALS: BMI 23.1
--- NOTE | 2022-01-18 09:47 | PC.NURSE ---
spoke with [facility] in pharmacy - when ordering Ampicillin received a conflict with allergy to anchovies- was instructed per [facility] to override- no conflict with anchovies
--- NOTE | 2022-01-18 15:47 | WPDANESEPPF ---
Anes - Initial Pre Proc Eval Procedure: Operation Date: 01/19/22 08:45 Proposed Procedures p Esophagogastroduodenoscopy - Donell Pelayo DO Date/Time: 01/18/22 15:47 Surgeon: Donell Pelayo DO Pre Op Diagnosis: dysphagia Patient Data Age: 81 Gender: M Height: 1.88 m Weight: 81.8 kg Allergies Allergy/AdvReac Type Severity Reaction Status Date / Time anchovies Allergy Rash, Uncoded 01/19/22 07:45 difficulty breathing Home Medications Medication Instructions Recorded Confirmed Type aspirin 81 mg tablet 81 mg PO DAILY 01/10/22 01/19/22 History atorvastatin 20 mg tablet 20 mg PO HS 01/10/22 01/19/22 History meloxicam 15 mg tablet 15 mg PO DAILY 01/10/22 01/19/22 History multivitamin with minerals-folic 0.4 tablet PO DAILY 01/10/22 01/19/22 History acid 0.4 mg tablet Patient hx anesthesia problems: none Family hx anesthesia problems: none Results Review: All pre-operative results and documents have been reviewed as part of the pre-operative evaluation. [facility] Past Medical History Medical History (Updated 01/18/22 @ 15:47 by Kumar Wolf DO) Compression fracture of lumbar vertebra GERD (gastroesophageal reflux disease) High cholesterol History of prostate cancer 2008, radiation seeds Surgical History Surgical History (Updated 03/16/21 @ 09:41 by SIMONA Mejia) H/O hand surgery History of carpal tunnel release History of cholecystectomy Family History Family History Sibling Patient's sister is in good health Family history of hepatitis, Onset Age: 50 Patient's brother is Mother Acute myocardial infarction, Onset Age: 89 Patient's mother is Heart disease Father Patient's father is Acute myocardial infarction Heart disease Social History Social History (Updated 03/15/21 @ 10:53 by PETR Nolan) Social History: Patient lives alone in a one story home with his cat. He has several brothers and sisters and has picked his brother Yordy or sister Marita to be his surrogate if he was unable to make his own decision. He also wishes to be a full code at this time. 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 Gender identity (if verbalized by the patient): Male Sexual Orientation (if Verbalized by the Patient): Straight or Heterosexual Spiritual care concerns: No (worship but does not practice) Agree to blood products: Yes Anes - Eval Final PreProcedure Day of Procedure 01/18/22 15:47 Patient weight: overweight Heart: regular rate and rhythm Lungs: clear to auscultation Airway: Mallampati scale class II Neurological: alert and oriented Last oral intake: >/= 8 hours ASA classification: II Emergent: no Anesthetic plan: proceed Anesthesia type and monitoring: general GIVS and standard monitoring Results Review: All pre-operative results and documents have been reviewed as part of the pre-operative evaluation. Informed Consent: The patient's anesthetic plan and its attendant risks and benefits were discussed with the patient/family/POA. Questions were solicited and answers provided to the satisfaction of the patient/family/POA.
[2022-01-19 07:40] VITALS: BP 164/75; PULSE 62; RESP 16; TEMP 36.2; O2SAT 100; BMI 23.3
[2022-01-19] MEDS: LACTATED RINGERS 1,000 ML 150 ML IV CONT (08:04)
[2022-01-19] MEDS: ceFAZolin 2 GM/D5W 50 ML 2 GM/50 ML BAG IVPB (08:05)
--- NOTE | 2022-01-19 09:08 | PM.IMHP ---
H&P: HPI History of Present Illness Date/Time: 01/19/22 09:08 Chief Complaint: dysphagia Narrative: this is an 81-year-old man who presents for EGD. He has been experiencing difficulty swallowing solid foods. He occasionally has to regurgitate. He denies any difficulty swallowing liquids. He does have a history of GERD, but has not had any acid reflux or heartburn recently. Review of Systems Review of Systems: All systems reviewed & are unremarkable except as noted in HPI and below Constitutional: Constitutional: Denies chills, Denies fever(s), Denies headache(s) and Denies weight loss Eyes: Eyes: Denies change in vision ENT: Denies dizziness, Denies headache(s), Denies neck mass and Denies throat swelling Cardiovascular: Cardiovascular: Denies chest pain, Denies lightheadedness and Denies dyspnea Respiratory: Respiratory: Denies cough, Denies dyspnea and Denies wheezing Gastrointestinal: Gastrointestinal: Reports as per HPI, Denies abdominal pain, Denies change in bowel habits, Denies nausea and Denies vomiting Genitourinary: Genitourinary: Denies hematuria and Denies dysuria Musculoskeletal: Musculoskeletal: Reports as per HPI Integumentary/Breasts: Skin/Breast: Reports as per HPI Neurologic: Denies dizziness and Denies headache(s) Allergic/Immunologic: Allergic/Immunologic: Denies throat swelling and Denies wheezing PMFSH Past Medical History Medical History (Updated 01/19/22 @ 09:09 by Donell Pelayo DO) Compression fracture of lumbar vertebra GERD (gastroesophageal reflux disease) High cholesterol History of prostate cancer 2008, radiation seeds Surgical History Surgical History (Updated 03/16/21 @ 09:41 by SIMONA Mejia) H/O hand surgery History of carpal tunnel release History of cholecystectomy Family History Family History Sibling Patient's sister is in good health Family history of hepatitis, Onset Age: 50 Patient's brother is Mother Acute myocardial infarction, Onset Age: 89 Patient's mother is Heart disease Father Patient's father is Acute myocardial infarction Heart disease Social History Social History (Updated 03/15/21 @ 10:53 by PETR Nolan) Social History: Patient lives alone in a one story home with his cat. He has several brothers and sisters and has picked his brother Yordy or sister Marita to be his surrogate if he was unable to make his own decision. He also wishes to be a full code at this time. 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 Gender identity (if verbalized by the patient): Male Sexual Orientation (if Verbalized by the Patient): Straight or Heterosexual Spiritual care concerns: No (jehovah's witness but does not practice) Agree to blood products: Yes Meds Home Medications and Allergies Home Medications Medication Instructions Recorded Confirmed Type aspirin 81 mg tablet 81 mg PO DAILY 01/10/22 01/19/22 History atorvastatin 20 mg tablet 20 mg PO HS 01/10/22 01/19/22 History meloxicam 15 mg tablet 15 mg PO DAILY 01/10/22 01/19/22 History multivitamin with minerals-folic 0.4 tablet PO DAILY 01/10/22 01/19/22 History acid 0.4 mg tablet Allergies Allergy/AdvReac Type Severity Reaction Status Date / Time anchovies Allergy Rash, Uncoded 01/19/22 07:45 difficulty breathing Vital Signs Vital Signs - 24 hr 01/19/22 07:40
[2022-01-19 09:50] VITALS: BP 132/70; PULSE 54; RESP 20; O2SAT 100
[2022-01-19 10:00] VITALS: BP 125/72; PULSE 59; RESP 20; O2SAT 100
[2022-01-19 10:10] VITALS: BP 170/89; PULSE 58; RESP 20; O2SAT 100
== END 2022-01-19 10:22 | disposition home or self-care (01) ==
PROVIDERS: PCP Internal Medicine; Visit Provider Surgery
PROC: 0DJ08ZZ Inspection of Upper Intestinal Tract, Via Natural or Artificial Opening Endoscopic (ICD-10-PCS; CPT 43235; principal; 2022-01-19 08:45)
DX: K22.2 Esophageal obstruction (principal); K22.10 Ulcer of esophagus without bleeding; K21.00 Gastro-esophageal reflux disease with esophagitis, without bleeding; K44.9 Diaphragmatic hernia without obstruction or gangrene; E78.00 Pure hypercholesterolemia, unspecified; Z79.82 Long term (current) use of aspirin; Z85.46 Personal history of malignant neoplasm of prostate; Z87.891 Personal history of nicotine dependence
CPT/HCPCS: 43249; 88305; 88313; 88342; C1726; J0690; J2704; J7120

== ENCOUNTER 2022-09-07 07:37 | Outpatient (CLI) | payer MEDICARE, OTHER, SELFPAY ==
--- NOTE | 2022-09-07 07:40 | ECG_ITS ---
Measurements Intervals [place] Rate: 61 P: 30 MS: 203 QRS: 14 QRSD: 90 T: 6 QT: 386 QTc: 389 Interpretive Statements SINUS RHYTHM MINIMAL VOLTAGE CRITERIA FOR LVH, CONSIDER NORMAL VARIANT [MEETS CRITERIA IN ONE OF: R(aVL), S(V1), R(V5), R(V5/V6)+S(V1)] NONSPECIFIC T-WAVE ABNORMALITY ABNORMAL ECG COMPARED TO ECG 10/01/2020 14:14:49 NO SIGNIFICANT CHANGES Electronically Signed On 09-07-2022 10:10:58 REWEAVER by Marques Mejia M.D.
[2022-09-07 08:39] LABS: Basophils Absolute Auto 0.1 K/mm3 (0.0-0.1); Basophils Percent Auto 1.1 % (0.2-1.2); Eosinophils Absolute Auto 0.2 K/mm3 (0-0.3); Eosinophils Percent Auto 3.5 % (0-4.4); Hematocrit 45.2 % (42.0-52.0); Hemoglobin 14.6 g/dL (14.0-18.0); Immature Granulocyte Absolute 0.02 K/mm3 (0.00-0.031); Immature Granulocyte Percent A 0.4 % (0-0.5); Lymphocytes Absolute Auto 2.02 K/mm3 (0.9-3.2); Lymphocytes Percent Auto 35.6 % (18.3-44.2); Mean Corpuscular HGB Conc 32.3 g/dl (32-36); Mean Corpuscular Hemoglobin 29.9 pg (26-34); Mean Corpuscular Volume 92.4 fl (80-100); Mean Platelet Volume 9.5 fl (7.4-10.4); Monocytes Absolute Auto 0.4 K/mm3 (0.1-0.6); Monocytes Percent Auto 7.2 % (2.6-8.5); Neutrophils Percent Auto 52.2 % (45.5-73.1); Platelet Count Result 208 k/mm3 (150-375); Red Blood Count 4.89 M/mm3 (4.6-6.20); Red Cell Distribution Width 14.3 % (11.5-14.5); White Blood Count 5.7 K/mm3 (4.5-10.0)
[2022-09-07 08:47] LABS: Partial Thromboplastin Time 26.4 SECONDS (22.3-36.8); Prothrombin Time 12.6 Seconds (11.1-14.7)
[2022-09-07 08:53] LABS: Anion Gap 4 mmol/L (8-16); Blood Urea Nitrogen 18 mg/dL (9-20); Calcium 9.2 mg/dL (8.4-10.2); Carbon Dioxide 25 mmol/L (22-30); Chloride 108 mmol/L (98-107); Estimated Glomerular Filt Rate > 60; Glucose 101 mg/dL (65-110); Potassium 4.2 mmol/L (3.4-5.0); Sodium 137 mmol/L (137-145)
== END 2022-09-07 07:38 | disposition home or self-care (01) ==
PROVIDERS: PCP Internal Medicine; Visit Provider Neurological Surgery
DX: Z01.818 Encounter for other preprocedural examination (principal); N17.9 Acute kidney failure, unspecified; R79.89 Other specified abnormal findings of blood chemistry; R94.31 Abnormal electrocardiogram [ECG] [EKG]
CPT/HCPCS: 36415; 80048; 85025; 85610; 85730; 86850; 86900; 86901; 93005

== ENCOUNTER 2022-10-03 09:10 | Outpatient (CLI) | payer MEDICARE, OTHER, SELFPAY ==
[2022-10-03 10:03] LABS: Appearance Urine Clear (Clear); Bilirubin Urine 1+ (Negative); Blood Urine Negative (Negative); Color Urine Yellow (Yellow); Glucose Urine UA Negative (Negative); Ketones Urine Negative (Negative); Leukocyte Esterase Ur Negative LEU/UL (Negative); Nitrate Urine Negative (Negative); Protein Urine Trace mg/dL (Negative); Specific Grav Ur 1.025 (1.001-1.035)
[2022-10-03 10:11] LABS: Calcium Oxalate Crystals Urine Many /hpf; Mucus Urine Rare /lpf
[2022-10-03 10:12] LABS: Add Urine Microscopic? YES
== END 2022-10-03 09:11 | disposition home or self-care (01) ==
PROVIDERS: PCP Internal Medicine; Visit Provider Neurological Surgery
DX: Z01.818 Encounter for other preprocedural examination (principal); M43.16 Spondylolisthesis, lumbar region
CPT/HCPCS: 36415; 81001; 86850; 86900; 86901

== ENCOUNTER 2022-10-06 19:10 | Inpatient (IN) | payer MEDICARE, OTHER, SELFPAY ==
--- NOTE | 2022-10-02 15:01 | PC.NURSE ---
Report to the Outpatient Waiting Room, entrance under the green pavilion located off [facility], at time _0600 on date __10/05/22 . Planned Procedure Time: __0730 . Time changes happen often and if your time is changed the preop area will call you the afternoon before. - You and your visitor will be asked to self-screen and do not enter if you have any COVID symptoms. - Only one visitor is requested with a max of two and NO children visitors are allowed at this time. - The patient visitor may be requested to leave or wait in car when not with patient due to distancing restrictions. - A mask is optional within the hospital at this time. Patients may have clear liquids (water, carbonated beverages, clear teas, apple juice) until 3 hours prior to surgery with a maximum of 20 ounces. - No food from midnight until time of surgery - Infants may have breast milk until 4 hours before surgery, formula 6 hours prior to surgery. - Children will be allowed to drink immediately following surgery. If applicable, please bring a bottle or sippy cup to assist with drinking. Juice, water, soda, and popsicles are readily available. For infants on formula, please bring formula the day of surgery. Pacifiers are allowed. Take the following medications with a SIP of water the morning of surgery: ___NONE DO NOT STOP ANY OF YOUR OTHER PRESCRIPTION MEDICATIONS PRIOR TO SURGERY ?EXCEPT THE FOLLOWING Medications to discontinue per physician __PT STATES HOLD ASPIRIN LAST DOSE 09/27/[address] EUBANKS__. ALL VITAMINS/SUPPLEMENTS 3 DAYS PRE OP. LAST DOSE 10/01/22 Please no make-up, nail cymro, hairspray, perfume, deodorant, or body powder the day of surgery. No jewelry (including any body piercings) or valuables the day of surgery, leave them at home. Please take a shower or bath the night before, or the morning of, surgery with an antibacterial soap. Wear comfortable, loose fitting clothing. Children are encouraged to wear pajamas. - Jewelry must be removed prior to entering the operating room. Rings and piercings that are not removed may be cut off. - The hospital will not accept responsibility for valuables. - Please leave all valuables, including medications, at home the day of surgery. If you are going home after surgery, a licensed car pick up driver must drive you home. - NO public transportation without another adult if you receive anesthesia. - We recommend that an adult stay with you for 24 hours following discharge. - We also recommend that you do not drive, make important decision, drink alcoholic beverages, or take any drugs that were not prescribed by your health care provider for at least 24 hours after your discharge time. For Pediatric surgeries, we recommend two adults accompany the child home. Follow any additional instructions given to you from your surgeon. If you or anyone in your household have experienced Covid symptoms in the past week, please notify your surgeon or the nurse liaison at the phone number below for possible testing. Telephone instructions given to __PATIENT and asked if any additional questions and then verbalized understanding. Patient advised to call surgeon office or pre surgery nurse liaison [phone] if any additional questions.
[2022-10-02 15:10] VITALS: BMI 22.8
--- NOTE | 2022-10-04 14:24 | WPDANESEPPF ---
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 Patient Data Age: 82 Gender: M Height: 1.88 m Weight: 80.75 kg Allergies Allergy/AdvReac Type Severity Reaction Status Date / Time anchovies Allergy Rash, Uncoded 10/05/22 06:15 difficulty breathing Home Medications Medication Instructions Recorded Confirmed Type aspirin 81 mg tablet 81 mg PO DAILY 01/10/22 10/05/22 History atorvastatin 20 mg tablet 20 mg PO HS 01/10/22 10/02/22 History multivitamin with minerals-folic 0.4 tablet PO DAILY 01/10/22 10/05/22 History acid 0.4 mg tablet omeprazole 20 mg capsule,delayed 20 mg PO DAILY #30 caps 01/19/22 10/02/22 Rx release Patient hx anesthesia problems: none Family hx anesthesia problems: none Results Review: All pre-operative results and documents have been reviewed as part of the pre-operative evaluation. [facility] Past Medical History Medical History Compression fracture of lumbar vertebra GERD (gastroesophageal reflux disease) High cholesterol History of prostate cancer 2008, radiation seeds Surgical History Surgical History H/O hand surgery History of carpal tunnel release History of cholecystectomy Family History Family History Sibling Patient's sister is in good health Family history of hepatitis, Onset Age: 50 Patient's brother is Mother Acute myocardial infarction, Onset Age: 89 Patient's mother is Heart disease Father Patient's father is Acute myocardial infarction Heart disease Social History Social History Social History: Patient lives alone in a one story home with his cat. He has several brothers and sisters and has picked his brother Yordy or sister Marita to be his surrogate if he was unable to make his own decision. He also wishes to be a full code at this time. 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 Gender identity (if verbalized by the patient): Male Sexual Orientation (if Verbalized by the Patient): Straight or Heterosexual Spiritual care concerns: No Agree to blood products: Yes Anes - Eval Final PreProcedure Day of Procedure 10/04/22 14:24 Patient weight: normal Heart: regular rate and rhythm Lungs: clear to auscultation Airway: Mallampati scale class II Neurological: alert and oriented Last oral intake: >/= 8 hours ASA classification: III Emergent: no Anesthetic plan: proceed Anesthesia type and monitoring: general ETT and standard monitoring Results Review: All pre-operative results and documents have been reviewed as part of the pre-operative evaluation. Informed Consent: The patient's anesthetic plan and its attendant risks and benefits were discussed with the patient/family/POA. Questions were solicited and answers provided to the satisfaction of the patient/family/POA.
[2022-10-05] VITALS (14 sets, daily range): BP systolic 135–166; BP diastolic 63–88; PULSE 60–88; RESP 12–18; TEMP 36.2–37.6; O2SAT 94–100; BMI 23.6
[2022-10-05] MEDS: LACTATED RINGERS 1,000 ML 30 ML IV CONT ×2 (06:25→10:32)
--- NOTE | 2022-10-05 07:38 | PM.IMHP ---
H&P: HPI History of Present Illness Date/Time: 10/05/22 07:38 Chief Complaint: Back and leg pain Narrative: Slava is a 82-year-old gentleman with back and leg pain related with spondylolisthesis L4-5 and presents for posterior lumbar interbody fusion. He has not changed appreciably since we last saw him. He does not have specific muscle group weakness or dermatomal numbness. He is not having bowel or bladder difficulty. Review of Systems Review of Systems: Patient denies shortness of breath, cough, fever, chills, nausea, vomiting, weight loss, weight gain, chest pain, dysuria. He has back and leg pain and back stiffness as noted above. His review of systems otherwise negative on 12 systems except as not PMFSH Past Medical History Medical History Compression fracture of lumbar vertebra GERD (gastroesophageal reflux disease) High cholesterol History of prostate cancer 2008, radiation seeds Surgical History Surgical History H/O hand surgery History of carpal tunnel release History of cholecystectomy Family History Family History Sibling Patient's sister is in good health Family history of hepatitis, Onset Age: 50 Patient's brother is Mother Acute myocardial infarction, Onset Age: 89 Patient's mother is Heart disease Father Patient's father is Acute myocardial infarction Heart disease Social History Social History Social History: Patient lives alone in a one story home with his cat. He has several brothers and sisters and has picked his brother Yordy or sister Marita to be his surrogate if he was unable to make his own decision. He also wishes to be a full code at this time. 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 Gender identity (if verbalized by the patient): Male Sexual Orientation (if Verbalized by the Patient): Straight or Heterosexual Spiritual care concerns: No Agree to blood products: Yes Meds Home Medications and Allergies Home Medications Medication Instructions Recorded Confirmed Type aspirin 81 mg tablet 81 mg PO DAILY 01/10/22 10/05/22 History atorvastatin 20 mg tablet 20 mg PO HS 01/10/22 10/02/22 History multivitamin with minerals-folic 0.4 tablet PO DAILY 01/10/22 10/05/22 History acid 0.4 mg tablet omeprazole 20 mg capsule,delayed 20 mg PO DAILY #30 caps 01/19/22 10/02/22 Rx release Allergies Allergy/AdvReac Type Severity Reaction Status Date / Time anchovies Allergy Rash, Uncoded 10/05/22 06:15 difficulty breathing Exam Narrative: Strength is 5/5 in all muscle groups of the bilateral lower extremities. Sensation is intact to light touch throughout the lower extremities. His breathing is unlabored. He speaks in complete sentences without difficulty. Regular rate and rhythm Assessment and Plan Assessment and plan (1) Stenosis of lateral recess of lumbar spine: Code(s): M48.061 - Spinal stenosis, lumbar region without neurogenic claudication Status: Acute (2) Spondylolisthesis at L4-L5 level: Code(s): M43.16 - Spondylolisthesis, lumbar region Status: Acute Plan Slava is a 2-year-old gentleman with a L4-5 spondylolisthesi
--- NOTE | 2022-10-05 07:40 | WPDHPUPDATE1 ---
History and Physical Update Update Date/Time: 10/05/22 07:40 History and Physical has been reviewed, including an updated exam of the patient. There are NO changes in the patient's condition. Risks, benefits, and alternatives have been discussed and questions answered. Patient agrees to proceed with procedure.
[2022-10-05] MEDS: ceFAZolin 2 GM/D5W 50 ML 2 GM/50 ML BAG IVPB (07:47)
[2022-10-05] MEDS: LIDO 1%/EPINEPHRINE 1:100,000 20 ML VIAL INFILTRATE (08:22)
--- NOTE | 2022-10-05 10:15 | W.PM.PROC2 ---
Procedure Note - Detailed Date of Procedure 10/05/22 Pre-op Diagnosis L4-5 Spondylolisthesis Post-op Diagnosis Same Procedure Performed L4-5 complete laminectomy and bilateral facetectomy, L4-5 complete diskectomy and interbody arthrodesis utilizing titanium interbody devices and local autograft, L4-5 pedicle screw instrumentation, L4-5 posterolateral inter transverse fusion Surgeon Prince Tate MD Step Down Nurse [place]ordo Anesthesia General Description of Procedure the patient was brought to the operating room in the supine position, was sedated, intubated and placed under general anesthesia in routine fashion. Was then turned into the position frame. The area of operation on his back was examined, marked for incision, prepped and draped in routine sterile fashion. Incision was marked over the L4 and L5 spinous processes in the midline. This area was injected 0.5% lidocaine with [id number] epinephrine. Intravenous antibiotics given prior to incision. Incision was made with a 10 blade scalpel down to the lumbodorsal fascia. A subperiosteal dissection of the muscle soft tissue away from the spinous process and lamina at L4-L5 was performed with a Subperiosteal elevator and Bovie cautery. a verifying x-rays obtained to verify the level of operation. The L4 spinous process was removed with a Andie rongeur. Kerrison punches, curved curette and a Leksell rongeur were used to remove lamina in the midline and to the soft contents of the canal were encountered. Midas-Ryan drill was used to resect the pars bilaterally at L4. The inferior articular process and facet of L4 could not be removed bilaterally. These +spinous process were stripped free of soft tissue and morselized for later use as interbody autograft. Kerrison punches and curved curettes were used to define a plane with the dura and removed bone and ligament flush with the pedicle and through the foramina widely decompressing the exiting nerve roots. With the thecal sac retracted and protected the disc space was entered bilaterally using an 11 blade scalpel. Scrapers a very sizes, curettes of various configurations, pituitary rongeur and a rasp were used to remove as much cartilaginous endplate and disc material as possible down to bleeding cortical flat surfaces on the opposing bones. Disc space was incised an 11 mm titanium interbody devices were chosen filled with local autograft bone. The disc space was likewise filled with local autograft bone medially and anteriorly. The interbody devices were then placed to a 2-3 mm countersink within the disc space bilaterally. the rest of the morselized bone was packed against the decorticated transverse processes at L4 and L5 to perform a posterolateral inter transverse fusion. These had been previously dissected free And decorticated with a Midas Ryan drill. Pedicle screw instrumentation was performed by observing a palpating the pedicle while a hole was made in this particular process above the pedicle using a Midas Ryan drill with an a.m. 8 bit. Pedicle was cannulated with a pedicle probe, checked for continuity with the ball probe, tapped with a 5.5 mm tap and a 6.5 x 50 mm screw was placed in each pedicle on each side. 40 mm rods were placed in the screw heads on either side and secured in position using the caps that purpose. These were definitively tightened with a torque and anti torque device. A verifying x-rays obtained to verify good position of the instrumentation which was confirmed. The wound was then copiously irrigated with bacitracin irrigation all bleeding stopped with bipolar and Bovie cautery and Gelfoam thrombin powder. A medium Hemovac drain was left in the subfascial position buried out the inferior right of the incision. The wound was then closed in layered fashion with 2-0 Vicryl interrupted sutures in the lumbodorsal fascia and Osorio's layer. 3-0 Vicryl buried interrupted sutures were placed in the dermis and the ski
[2022-10-05] MEDS: HYDROmorphone HCL INJ (*CRX) 1 MG/ML SYR 0.5 MG IV PUSH ×2 (14:31→21:48)
[2022-10-05] MEDS: KCL 20 MEQ/D5/0.45% SOD CHL 1,000 ML 100 ML IV CONT (14:38)
[2022-10-05] MEDS: ceFAZolin 1 GM/NS 50 ML 1 GM/50 ML BAG IVPB (15:52)
--- NOTE | 2022-10-05 18:12 | ADMGEN ---
This patient, Slava Govea Jr., was admitted to [facility] Surg Room 328-01 at 1240. Patient/family oriented to hospital policies and general routines including ID bracelet, bed and alarms, visiting hours, pain management, procedures, bathroom and other care routines, personal items, smoking policy, room service/diet, and visiting hours. Information on how to activate the Rapid Response Team has been discussed. Patient/Family are encouraged to report perceived risks to care and to ask questions if they do not understand what they are told or what they should do.
[2022-10-05] MEDS: MAG HYDROX/AL HYDROX/SIMETH 30 ML UDC 20 ML PO (21:07)
[2022-10-05] MEDS: HYDROcodone/acetaminophen (*CRX) 10-325 MG TABLET 1 TAB PO (21:08)
[2022-10-05] MEDS: DOCUSATE SODIUM 100 MG CAPSULE PO (21:53)
--- NOTE | ~2022-10-06 | XR_ITS ---
XR fluoroscopy no charge Lumbar fusion TECHNIQUE: Fluoroscopy used during lumbar fusion procedure performed by [Prince Tate MD] on 10/05/2022. 4 seconds of fluoroscopy with 1 images captured. ] FINDINGS: Correlate with procedure note. IMPRESSION: Fluoroscopy used during lumbar fusion procedure. Reviewed, dictated and finalized at location L. ET POLISHER
[2022-10-06] MEDS: ceFAZolin 1 GM/NS 50 ML 1 GM/50 ML BAG IVPB ×4 (00:11→22:21)
[2022-10-06] MEDS: HYDROmorphone HCL INJ (*CRX) 1 MG/ML SYR 0.5 MG IV PUSH ×2 (01:22→08:22)
[2022-10-06 01:23] VITALS: BP 107/51; PULSE 77; RESP 18; TEMP 36.4; O2SAT 91
[2022-10-06] MEDS: KCL 20 MEQ/D5/0.45% SOD CHL 1,000 ML 100 ML IV CONT ×3 (01:25→08:22)
[2022-10-06] MEDS: HYDROcodone/acetaminophen (*CRX) 10-325 MG TABLET 1 TAB PO ×3 (05:59→20:08)
[2022-10-06 06:00] VITALS: BP 120/87; PULSE 77; RESP 20; TEMP 36.7; O2SAT 95
--- NOTE | 2022-10-06 07:42 | WPDANESPN ---
Anes - Prog Note Post-Op Date/Time: 10/06/22 07:42 Cardiovascular status: normal Respiratory status: normal Airway patency: baseline Mental status: baseline Post-Op hydration status: normal Vital Signs: Last Vital Signs Temp 36.4 C L 10/06/22 01:23 Pulse 77 10/06/22 01:23 Resp 18 10/06/22 01:23 BP 107/51 L 10/06/22 01:23 Pulse Ox 91 10/06/22 01:23 O2 Del Method Room Air 10/05/22 18:15 O2 Flow Rate 8 10/05/22 11:00 Pain Score (VAS): 10/13 I/O: Intake & Output 10/05/22 10/05/22 10/06/22 15:59 23:59 07:59 Intake Total 2200 300 2050 Output Total 35 420 Balance 2165 -120 2050 Post-procedural complaints: none Patient Feedback: Patient satisfied with anesthetic care.
[2022-10-06] MEDS: DOCUSATE SODIUM 100 MG CAPSULE PO ×2 (08:23→20:09)
[2022-10-06 09:45] VITALS: BP 99/36; PULSE 67; RESP 18; TEMP 36.6; O2SAT 90
[2022-10-06 13:56] VITALS: BP 135/50; PULSE 86; RESP 18; TEMP 37.1; O2SAT 94
[2022-10-06 22:00] VITALS: BP 106/53; PULSE 83; RESP 20; TEMP 37.1; O2SAT 89
[2022-10-07] MEDS: KCL 20 MEQ/D5/0.45% SOD CHL 1,000 ML 30 ML IV CONT (00:02)
[2022-10-07 00:08] VITALS: O2SAT 92
[2022-10-07 06:00] VITALS: BP 139/64; PULSE 87; RESP 20; TEMP 37; O2SAT 90
[2022-10-07] MEDS: ceFAZolin 1 GM/NS 50 ML 1 GM/50 ML BAG IVPB ×3 (06:01→22:25)
[2022-10-07 09:00] VITALS: BMI 10.0
[2022-10-07] MEDS: DOCUSATE SODIUM 100 MG CAPSULE PO ×2 (09:05→20:04)
[2022-10-07] MEDS: HYDROcodone/acetaminophen (*CRX) 10-325 MG TABLET 1 TAB PO (09:05)
[2022-10-07 14:07] VITALS: BP 137/52; PULSE 72; RESP 18; TEMP 36.4; O2SAT 95
[2022-10-07] MEDS: BISACODYL 10 MG SUPPOSITORY RECTAL (15:37)
[2022-10-07] MEDS: HYDROcodone/acetaminophen (*CRX) 5-325 MG TABLET 1 TAB PO (20:04)
[2022-10-07 21:46] VITALS: BP 130/61; PULSE 83; RESP 18; TEMP 37.3; O2SAT 93
[2022-10-08] MEDS: ceFAZolin 1 GM/NS 50 ML 1 GM/50 ML BAG IVPB ×3 (05:57→22:29)
[2022-10-08 06:00] VITALS: BP 133/67; PULSE 78; RESP 18; TEMP 36.9; O2SAT 94
[2022-10-08] MEDS: DOCUSATE SODIUM 100 MG CAPSULE PO ×2 (09:14→20:05)
[2022-10-08 16:20] VITALS: BP 149/64; PULSE 91; RESP 18; TEMP 37.2; O2SAT 94
[2022-10-08 19:46] VITALS: O2SAT 95
[2022-10-08] MEDS: KCL 20 MEQ/D5/0.45% SOD CHL 1,000 ML 30 ML IV CONT (20:00)
[2022-10-08 22:00] VITALS: BP 155/79; PULSE 87; RESP 16; TEMP 37; O2SAT 95
[2022-10-08] MEDS: HYDROcodone/acetaminophen (*CRX) 5-325 MG TABLET 1 TAB PO (22:29)
[2022-10-09 05:24] VITALS: BP 151/78; PULSE 72; RESP 16; TEMP 36.4; O2SAT 98
[2022-10-09] MEDS: ceFAZolin 1 GM/NS 50 ML 1 GM/50 ML BAG IVPB (06:00)
[2022-10-09] MEDS: DOCUSATE SODIUM 100 MG CAPSULE PO ×2 (08:51→21:43)
[2022-10-09 14:00] VITALS: BP 143/62; PULSE 76; RESP 16; TEMP 37.2; O2SAT 94
--- NOTE | 2022-10-09 19:08 | PC.NURSE ---
Pt states he thinks he was given his 0700 cefazolin, but it was not scanned. Administered it as it was not in fridge, pt seems to recall it. 1500 dose cancelled by Bebeto.
[2022-10-09 22:00] VITALS: BP 166/76; PULSE 85; RESP 14; TEMP 36.7; O2SAT 96
[2022-10-10] MEDS: CYCLOBENZAPRINE HCL 10 MG TABLET PO (00:18)
[2022-10-10 05:37] VITALS: BP 155/87; PULSE 73; RESP 26; TEMP 36.6; O2SAT 95
[2022-10-10 08:00] VITALS: PULSE 73; RESP 26; O2SAT 95
[2022-10-10] MEDS: DOCUSATE SODIUM 100 MG CAPSULE PO (08:58)
[2022-10-10 14:00] VITALS: BP 153/73; PULSE 80; RESP 14; TEMP 37.1; O2SAT 98
--- NOTE | 2022-10-15 21:12 | PM.DS ---
DS: Admitting Diagnosis Discharge Date 10/10/22 DS: Summary Time Spent with Patient Time attestation: Total time spent providing and/or coordinating discharge services: Discharge Plan Discharge Attending physician on discharge: Prince Tate Consulting providers: Bora Steel Discharging Clinician: Maine Machado Anticipated Discharge Date/Time: 10/10/22 14:04 Patient Disposition: Home Health Service Activity: may shower Diet: as tolerated Wound Care Instructions: follow printed instructions Discharge Instructions: Per Care Coordination [facility] ([phone]) to call to schedule first appointment for RN/PT/OT services for evaluation and treatment. Call them if you do not receive a call. RN please fax discharge information to [facility] at [phone]. see outpatient orders from clinic Patient Instructions: Antibiotic Form Stand Alone Forms: General Discharge Information Follow-up/Referrals: Prince Tate MD [Physician] - (follow up with Dr. Tate) Discharge Medications: New hydrocodone-acetaminophen 5-325 mg tablet 1 tablet PO Q4H PRN (Reason: pain) Qty: 30 0RF Continued multivit with min-folic acid 0.4 mg Tablet 0.4 tablet PO DAILY atorvastatin 20 mg tablet 20 mg PO HS omeprazole 20 mg capsule,delayed release(/EC) 20 mg PO DAILY Qty: 30 11RF Discontinued aspirin 81 mg Tablet 81 mg PO DAILY Date of admission: 10/06/22 19:10 Primary Care Provider: Eboni Oneill Admitting Provider: Prince Tate Attending physician on admission: Maine Machado Condition: Improved
--- NOTE | 2022-10-15 21:18 | P.DS_ITS ---
DS: Admitting Diagnosis Discharge Date 10/10/22 Admitting Diagnosis Grade 1 spondylolisthesis L4-5 DS: Discharge Diagnosis Discharge Diagnosis (1) Spondylolisthesis at L4-L5 level: Code(s): M43.16 - Spondylolisthesis, lumbar region Status: Acute DS: Summary Hospital Course Hospital Course: the patient was taken to the operating room on 10/05/2022 where the aforementioned operation was performed without complication. The patient went to the floor postoperatively. Over the ensuing days the Uriostegui catheter and drain removed. Physical and occupational therapy were involved in his care. At the time of his discharge he was eating, ambulating, emptying his bladder and his pain was under control with by mouth pain medicine. His wounds remained clean dry and intact. He was afebrile stable vital signs. He was therefore allowed to be discharged to home. Status at Discharge Functional status at discharge: independent ambulation Overall status at discharge: patient is progressing back to baseline Time Spent with Patient Time attestation: Total time spent providing and/or coordinating discharge services: Discharge Plan Discharge Attending physician on discharge: Prince Tate Consulting providers: Bora Steel Discharging Clinician: Maine Machado Anticipated Discharge Date/Time: 10/10/22 14:04 Patient Disposition: Home Health Service Activity: december shower Diet: as tolerated Wound Care Instructions: follow printed instructions Discharge Instructions: Per Care Coordination [facility] ([phone]) to call to schedule first appointment for RN/PT/OT services for evaluation and treatment. Call them if you do not receive a call. RN please fax discharge information to [facility] at [phone]. see outpatient orders from clinic Patient Instructions: Antibiotic Form Stand Alone Forms: General Discharge Information Follow-up/Referrals: Prince Tate MD [Physician] - (follow up with Dr. Tate) Discharge Medications: New hydrocodone-acetaminophen 5-325 mg tablet 1 tablet PO Q4H PRN (Reason: pain) Qty: 30 0RF Continued multivit with min-folic acid 0.4 mg Tablet 0.4 tablet PO DAILY atorvastatin 20 mg tablet 20 mg PO HS omeprazole 20 mg capsule,delayed release(DR/EC) 20 mg PO DAILY Qty: 30 11RF Discontinued aspirin 81 mg Tablet 81 mg PO DAILY Date of admission: 10/06/22 19:10 Primary Care Provider: Eboni Oneill Admitting Provider: Prince Tate Attending physician on admission: Maine Machado Condition: Improved
== END 2022-10-10 17:20 | disposition home health service (06) | DRG 455 ==
LOC: ANHSURGERY 19:12 → ANH3MEDSUR 19:12
PROVIDERS: Admitting Provider Neurological Surgery; PCP Internal Medicine; Visit Provider Neurological Surgery
PROC: 0SG00AJ Fusion of Lumbar Vertebral Joint with Interbody Fusion Device, Posterior Approach, Anterior Column, Open Approach (ICD-10-PCS; CPT 22612; principal; 2022-10-05 07:30)
DX: M43.16 Spondylolisthesis, lumbar region (principal); M48.061 Spinal stenosis, lumbar region without neurogenic claudication; K21.9 Gastro-esophageal reflux disease without esophagitis; Z85.46 Personal history of malignant neoplasm of prostate; Z90.49 Acquired absence of other specified parts of digestive tract; Z87.891 Personal history of nicotine dependence
CPT/HCPCS: 36415; 81001; 86850; 86900; 86901; 97110; 97116; 97161; 97165; 97530; 97535; 99199; A9270; C1713; J0690; J1100; J1170; J2405; J2704; J3010; J3480; J7120

== ENCOUNTER 2022-11-13 09:05 | Outpatient (CLI) | payer MEDICARE, OTHER, SELFPAY ==
--- NOTE | ~2022-11-13 | XR_ITS ---
XR lumbar spine 2-3V 11/13/2022 09:25 Indication: Postop lumbar surgery. Procedure: 3 views lumbar spine Comparison: No prior studies for comparison. Findings: Status post posterior fusion at L4-5 with prosthetic disc device at this level. There is gr rosio 1 spondylolisthesis at L4-5 and L5-S1. No acute fracture or traumatic malalignment. There is athe rosclerosis. Impression: 1: Lumbar spondylosis with fusion at L4-5 with associated prosthetic disc device at this level. 2: Grade 1 spondylolisthesis at L4-5 and L5-S1. Reviewed, dictated and finalized at location B. Impression: 1: Lumbar spondylosis with fusion at L4-5 with associated prosthetic disc devic e at this level. 2: Grade 1 spondylolisthesis at L4-5 and L5-S1.
== END 2022-11-13 09:06 | disposition home or self-care (01) ==
PROVIDERS: PCP Internal Medicine; Visit Provider Neurological Surgery
DX: Z98.1 Arthrodesis status (principal); M47.816 Spondylosis without myelopathy or radiculopathy, lumbar region; M43.16 Spondylolisthesis, lumbar region
CPT/HCPCS: 72100

== ENCOUNTER 2023-04-30 14:43 | Outpatient (CLI) | payer MEDICARE, OTHER, SELFPAY ==
--- NOTE | ~2023-04-30 | XR_ITS ---
EXAMINATION: XR chest 2V Exam Date/Time: 04/30/2023 14:59 CDT HISTORY: URI SYMPTOMS,COUGH Comparison: 03/04/2021. RESULT: Lines, tubes, and devices: Cholecystectomy clips. Lungs and pleura: Clear. Cardiomediastinal silhouette: Stable. Small hiatal hernia Other: No acute osseous or upper abdominal finding. IMPRESSION: No acute cardiopulmonary process. Reviewed, dictated and finalized at location K.
[2023-04-30 15:04] LABS: Basophils Absolute Auto 0.04 K/mm3 (0.00-0.10); Basophils Percent Auto 0.6 % (0.0-1.0); Eosinophils Absolute Auto 0.18 K/mm3 (0.02-0.50); Eosinophils Percent Auto 2.7 % (1.0-6.0); Hematocrit 42.8 % (37.0-46.0); Hemoglobin 13.6 g/dL (12.4-15.3); Immature Granulocyte Absolute 0.03 K/mm3 (0.00-0.00); Immature Granulocyte Percent A 0.5 % (0.0-0.0); Lymphocytes Absolute Auto 1.87 K/mm3 (1.10-4.50); Lymphocytes Percent Auto 28.2 % (18.0-42.0); Mean Corpuscular HGB Conc 31.8 g/dL (32.0-36.0); Mean Corpuscular Hemoglobin 27.3 pg (27.0-31.0); Mean Corpuscular Volume 85.8 fL (78.0-102.0); Monocytes Absolute Auto 0.33 K/mm3 (0.10-0.90); Neutrophils Absolute Auto 4.2 K/mm3 (1.7-7.2); Platelet Count Result 241 K/mm3 (150-420); Red Blood Count 4.99 M/mm3 (4.70-6.10); Red Cell Distribution Width 15.7 % (11.6-14.4); White Blood Count 6.6 K/mm3 (4.8-10.8)
[2023-04-30 15:29] LABS: Strep Group A RT-PCR NOT DETECTED (Negative)
[2023-04-30 15:39] LABS: Alanine Aminotransferase 22 U/L (16-63); Albumin Level 3.5 g/dL (3.4-5.0); Alkaline Phosphatase 158 U/L (46-116); Anion Gap 10 mmol/L (8-16); Aspartate Amino Transferase 18 U/L (15-37); Bilirubin,Total 0.6 mg/dL (0.00-1.00); Blood Urea Nitrogen 18 mg/dL (7-18); Calcium 9.9 mg/dL (8.5-10.1); Carbon Dioxide 26 mmol/L (21-32); Chloride 109 mmol/L (98-108); Estimated Glomerular Filt Rate > 60; Glucose 103 mg/dL (70-99); Osmolality Calculated 301 mOsm/kg (285-295); Potassium 3.8 mmol/L (3.5-5.1); Sodium 145 mmol/L (136-145)
[2023-04-30 15:41] LABS: Influenza A QL RT-PCR Negative (Negative); Influenza B QL RT-PCR Negative (Negative); SARS-CoV-2 RNA PCR Negative (Negative)
== END 2023-04-30 14:44 | disposition home or self-care (01) ==
LOC: CHSLAB 14:46
PROVIDERS: PCP Internal Medicine; Visit Provider Internal Medicine
DX: R05.9 Cough, unspecified (principal)
CPT/HCPCS: 36415; 71046; 80053; 85025; 87636; 87651

== ENCOUNTER 2023-07-04 08:35 | Outpatient (CLI) | payer MEDICARE, SELFPAY ==
[2023-07-04 08:52] LABS: Basophils Absolute Auto 0.06 K/mm3 (0.00-0.10); Basophils Percent Auto 0.9 % (0.0-1.0); Eosinophils Absolute Auto 0.23 K/mm3 (0.02-0.50); Eosinophils Percent Auto 3.4 % (1.0-6.0); Hematocrit 43.6 % (37.0-46.0); Hemoglobin 13.9 g/dL (12.4-15.3); Immature Granulocyte Absolute 0.03 K/mm3 (0.00-0.00); Immature Granulocyte Percent A 0.4 % (0.0-0.0); Lymphocytes Absolute Auto 1.79 K/mm3 (1.10-4.50); Lymphocytes Percent Auto 26.4 % (18.0-42.0); Mean Corpuscular HGB Conc 31.9 g/dL (32.0-36.0); Mean Corpuscular Hemoglobin 27.9 pg (27.0-31.0); Mean Corpuscular Volume 87.6 fL (78.0-102.0); Monocytes Absolute Auto 0.47 K/mm3 (0.10-0.90); Monocytes Percent Auto 6.9 % (2.0-11.0); Neutrophils Absolute Auto 4.2 K/mm3 (1.7-7.2); Platelet Count Result 251 K/mm3 (150-420); Red Blood Count 4.98 M/mm3 (4.70-6.10); Red Cell Distribution Width 15.2 % (11.6-14.4); White Blood Count 6.8 K/mm3 (4.8-10.8)
[2023-07-04 09:33] LABS: Alanine Aminotransferase 39 U/L (16-63); Albumin Level 3.7 g/dL (3.4-5.0); Alkaline Phosphatase 123 U/L (46-116); Anion Gap 6 mmol/L (8-16); Aspartate Amino Transferase 26 U/L (15-37); Bilirubin,Total 0.9 mg/dL (0.00-1.00); Blood Urea Nitrogen 17 mg/dL (7-18); Calcium 9.4 mg/dL (8.5-10.1); Carbon Dioxide 31 mmol/L (21-32); Chloride 104 mmol/L (98-108); Estimated Glomerular Filt Rate 56; Free T3 2.68 pg/mL (2.18-3.98); Free T4 Free Thyroxine 0.79 ng/dL (0.76-1.46); Glucose 91 mg/dL (70-99); Osmolality Calculated 293 mOsm/kg (285-295); Potassium 4.3 mmol/L (3.5-5.1); Sodium 141 mmol/L (136-145); Thyroid Stimulating Hormone 4.36 uIU/mL (0.36-3.74)
[2023-07-04 09:34] LABS: CRP < 0.5 mg/dL (0.0-0.9)
== END 2023-07-04 08:36 | disposition home or self-care (01) ==
LOC: CHSLAB 08:37
PROVIDERS: PCP Internal Medicine; Visit Provider Internal Medicine
DX: J31.0 Chronic rhinitis (principal); E03.4 Atrophy of thyroid (acquired); Z85.46 Personal history of malignant neoplasm of prostate
CPT/HCPCS: 36415; 80053; 84439; 84443; 84481; 85025; 86140

== ENCOUNTER 2023-07-18 12:22 | Outpatient (CLI) | payer MEDICARE, OTHER, SELFPAY ==
--- NOTE | ~2023-07-18 | US_ITS ---
EXAMINATION: US thyroid DATE: 07/18/2023 12:40 INDICATION: Hypothyroidism TECHNIQUE: Multiple ultrasound images of the thyroid were obtained. COMPARISON: None. FINDINGS: The right thyroid lobe measures 3.8 x 1.3 x 1.5 cm. The left thyroid lobe measures 3.8 x 1.2 x 1.1 c m. The isthmus measures 1.8 mm. There is normal echotexture and echogenicity throughout the thyroid g land. No discrete nodules identified. Normal vascular flow is present. IMPRESSION: Normal thyroid ultrasound findings. Reviewed, dictated and finalized at location K. OYEE COMM[employer]ICATIONS MANAGER
== END 2023-07-18 12:23 | disposition home or self-care (01) ==
LOC: CHSIMG 12:24
PROVIDERS: PCP Internal Medicine; Visit Provider Internal Medicine
DX: E03.9 Hypothyroidism, unspecified (principal)
CPT/HCPCS: 76536

== ENCOUNTER 2024-01-11 08:20 | Outpatient (CLI) | payer MEDICARE, SELFPAY ==
[2024-01-11 08:37] LABS: Basophils Absolute Auto 0.03 K/mm3 (0.00-0.10); Basophils Percent Auto 0.7 % (0.0-1.0); Eosinophils Absolute Auto 0.16 K/mm3 (0.02-0.50); Eosinophils Percent Auto 3.8 % (1.0-6.0); Hematocrit 41.5 % (37.0-46.0); Hemoglobin 13.3 g/dL (12.4-15.3); Immature Granulocyte Absolute 0.01 K/mm3 (0.00-0.00); Immature Granulocyte Percent A 0.2 % (0.0-0.0); Lymphocytes Absolute Auto 1.52 K/mm3 (1.10-4.50); Lymphocytes Percent Auto 36.5 % (18.0-42.0); Mean Corpuscular Hemoglobin 27.9 pg (27.0-31.0); Mean Corpuscular Volume 87.2 fL (78.0-102.0); Mean Platelet Volume 8.9 fl (8.7-11.0); Monocytes Absolute Auto 0.29 K/mm3 (0.10-0.90); Neutrophils Absolute Auto 2.15 K/mm3 (1.70-7.20); Neutrophils Percent Auto 51.8 % (50.0-70.0); Platelet Count Result 227 K/mm3 (150-420); Red Blood Count 4.76 M/mm3 (4.70-6.10); Red Cell Distribution Width 14.1 % (11.6-14.4); White Blood Count 4.2 K/mm3 (4.8-10.8)
[2024-01-11 09:05] LABS: Hemoglobin A1C 5.7 % (<5.7)
[2024-01-11 09:23] LABS: Alanine Aminotransferase 23 U/L (16-63); Albumin Level 3.6 g/dL (3.4-5.0); Alkaline Phosphatase 82 U/L (46-116); Anion Gap 10 mmol/L (4-12); Aspartate Amino Transferase 22 U/L (15-37); Bilirubin,Total 0.8 mg/dL (0.00-1.00); Blood Urea Nitrogen 14 mg/dL (7-18); Calcium 8.9 mg/dL (8.5-10.1); Carbon Dioxide 26 mmol/L (21-32); Chloride 107 mmol/L (98-108); Cholesterol 154 mg/dL (0-200); Creatine Kinase 65 U/L (39-308); Estimated Glomerular Filt Rate > 60; Free T3 2.39 pg/mL (2.18-3.98); Free T4 Free Thyroxine 0.81 ng/dL (0.76-1.46); Glucose 89 mg/dL (70-99); HDL Direct 57 mg/dL (40-60); LDL Cholesterol Calculated 84 mg/dL (<130); Osmolality Calculated 295 mOsm/kg (285-295); Sodium 143 mmol/L (136-145); Thyroid Stimulating Hormone 2.31 uIU/mL (0.36-3.74); Total Protein 6.9 g/dL (6.4-8.2); Triglycerides 65 mg/dL (0-150)
== END 2024-01-11 08:21 | disposition home or self-care (01) ==
LOC: CHSLAB 08:22
PROVIDERS: PCP Internal Medicine; Visit Provider Internal Medicine
DX: E78.2 Mixed hyperlipidemia (principal); R31.29 Other microscopic hematuria; E03.4 Atrophy of thyroid (acquired); R73.01 Impaired fasting glucose
CPT/HCPCS: 36415; 80053; 80061; 82550; 83036; 84439; 84443; 84481; 85025

== ENCOUNTER 2024-04-14 00:17 | Day surgery (SDC) | payer MEDICARE, SELFPAY ==
[2024-03-28 09:10] VITALS: BMI 23.2
[2024-04-14 07:19] VITALS: BP 195/90; PULSE 62; RESP 18; TEMP 36.1; O2SAT 100
[2024-04-14] MEDS: LACTATED RINGERS 1,000 ML 150 ML IV CONT (07:37)
--- NOTE | 2024-04-14 08:15 | WPDANESEPPF ---
Anes - Initial Pre Proc Eval Procedure: Operation Date: 04/14/24 08:30 Proposed Procedures p Esophagogastroduodenoscopy - Donell Pelayo DO Date/Time: 04/14/24 08:15 Surgeon: Donell Pelayo DO Pre Op Diagnosis: dysphagia Patient Data Age: 84 Gender: M Height: 1.88 m Weight: 84.3 kg Last Vital Signs Temp 97 F L 04/14/24 07:19 Pulse 62 04/14/24 07:19 Resp 18 04/14/24 07:19 BP 195/90 H 04/14/24 07:19 Pulse Ox 100 04/14/24 07:19 O2 Del Method Room Air 04/14/24 07:19 Allergies Allergy/AdvReac Type Severity Reaction Status Date / Time anchovies Allergy Rash, Uncoded 04/14/24 07:18 difficulty breathing Home Medications Medication Instructions Recorded Confirmed Type atorvastatin 20 mg tablet 20 mg PO HS 01/10/22 04/14/24 History multivitamin with minerals-folic 0.4 tablet PO DAILY 01/10/22 04/14/24 History acid 0.4 mg tablet pantoprazole 40 mg tablet,delayed 40 mg PO BID 03/28/24 04/14/24 History release sucralfate 1 gram tablet 1 g PO QID 03/28/24 04/14/24 History Patient hx anesthesia problems: none Family hx anesthesia problems: none Results Review: All pre-operative results and documents have been reviewed as part of the pre-operative evaluation. [facility] Past Medical History Medical History Compression fracture of lumbar vertebra GERD (gastroesophageal reflux disease) High cholesterol History of prostate cancer 2008, radiation seeds Surgical History Surgical History H/O hand surgery History of carpal tunnel release History of cholecystectomy Family History Family History Sibling Patient's sister is in good health Family history of hepatitis, Onset Age: 50 Patient's brother is Mother Acute myocardial infarction, Onset Age: 89 Patient's mother is Heart disease Father Patient's father is Acute myocardial infarction Heart disease Social History Social History (Updated 02/19/23 @ 08:38 by Russell Juarez MA) Social History: Patient lives alone in a one story home with his cat. He has several brothers and sisters and has picked his brother Yordy or sister Marita to be his surrogate if he was unable to make his own decision. He also wishes to be a full code at this time. Smoking packs per day: 0.5 Smoking cigarettes per day: 10.0 Years smoked: 3 Smoking pack-years: 1.50 Smoking status: Never smoker Tobacco type: cigarettes Smoking end date: 08/06/95 Alcohol intake: former Alcohol use details: FORMER SOCIAL DRINKER quit in 1991-10 Substance use: never Substance use type: does not use Lack of Transportation: No Lack of Food: Never True Current Housing: I Have Housing Concerned About Future Housing: No Difficulty Paying Gas/Electric Bills: No Difficulty Paying for Meds: No Currently Unemployed: No Education: High School Diploma/GED Difficulty w/ Childcare or Family Care: No Living arrangements: alone Additional living arrangements comments: with his cat Occupation/Education: retired Additional occupation/education comments: [employer]--retired in 2001 Gender identity (if verbalized by the patient): Male Sexual Orientation (if Verbalized by the Patient): Straight or Heterosexual Spiritual care concerns: No Agree to blood products: Yes Anes - Eval Final PreProcedure Day of Procedure 04/14/24 08:15 Patient weight: normal Heart: regular rate and rhythm Lungs: clear to auscultation Airway: Mallampati scale class II Neurological: alert and oriented Last oral intake: >/= 8 hours ASA classification: III Emergent: no Anesthetic plan: proceed Anesthesia type and monitoring: general GIVS and standard monitoring Results Review: All pre-
[2024-04-14] MEDS: hydrALAZINE HCL 20 MG/ML VIAL 5 MG IV PUSH (08:17)
--- NOTE | 2024-04-14 08:31 | PM.IMHP ---
H&P: HPI History of Present Illness Date/Time: 04/14/24 08:31 Chief Complaint: Dysphagia Narrative: this is an 84-year-old man who presents for EGD. He had an episode of dysphagia after eating ribs about 6 weeks ago. He states that it took about 24 hours to get relief. He has a prior history of dysphagia and had undergone EGD with balloon dilation 2 years ago. This seemed to be doing well up until recently. Review of Systems Review of Systems: All systems reviewed & are unremarkable except as noted in HPI and below Constitutional: Constitutional: Denies chills, Denies fever(s), Denies headache(s) and Denies weight loss Eyes: Eyes: Denies change in vision ENT: Denies dizziness, Denies headache(s), Denies neck mass and Denies throat swelling Cardiovascular: Cardiovascular: Denies chest pain, Denies lightheadedness and Denies dyspnea Respiratory: Respiratory: Denies cough, Denies dyspnea and Denies wheezing Gastrointestinal: Gastrointestinal: Denies abdominal pain, Denies change in bowel habits, Denies nausea and Denies vomiting Genitourinary: Genitourinary: Denies hematuria and Denies dysuria Musculoskeletal: Musculoskeletal: Reports as per HPI Integumentary/Breasts: Skin/Breast: Reports as per HPI Neurologic: Denies dizziness and Denies headache(s) Allergic/Immunologic: Allergic/Immunologic: Denies throat swelling and Denies wheezing PMF Past Medical History Medical History Compression fracture of lumbar vertebra GERD (gastroesophageal reflux disease) High cholesterol History of prostate cancer 2008, radiation seeds Surgical History Surgical History H/O hand surgery History of carpal tunnel release History of cholecystectomy Family History Family History Sibling Patient's sister is in good health Family history of hepatitis, Onset Age: 50 Patient's brother is Mother Acute myocardial infarction, Onset Age: 89 Patient's mother is Heart disease Father Patient's father is Acute myocardial infarction Heart disease Social History Social History (Updated 02/19/23 @ 08:38 by Russell Juarez MA) Social History: Patient lives alone in a one story home with his cat. He has several brothers and sisters and has picked his brother Yordy or sister Marita to be his surrogate if he was unable to make his own decision. He also wishes to be a full code at this time. Smoking packs per day: 0.5 Smoking cigarettes per day: 10.0 Years smoked: 3 Smoking pack-years: 1.50 Smoking status: Never smoker Tobacco type: cigarettes Smoking end date: 08/06/95 Alcohol intake: former Alcohol use details: FORMER SOCIAL DRINKER quit in 1991-10 Substance use: never Substance use type: does not use Lack of Transportation: No Lack of Food: Never True Current Housing: I Have Housing Concerned About Future Housing: No Difficulty Paying Gas/Electric Bills: No Difficulty Paying for Meds: No Currently Unemployed: No Education: High School Diploma/GED Difficulty w/ Childcare or Family Care: No Living arrangements: alone Additional living arrangements comments: with his cat Occupation/Education: retired Additional occupation/education comments: [employer]--retired in 2001 Gender identity (if verbalized by the patient): Male Sexual Orientation (if Verbalized by the Patient): Straight or Heterosexual Spiritual care concerns: No Agree to blood products: Yes Meds Home Medications and Allergies Home Medications Medication Instructions Recorded Confirmed Type atorvastatin 20 mg tablet 20 mg PO HS 01/10/22 04/14/24 History multivitamin with minerals-folic 0.4 tablet PO DAILY 01/10/22 04/14/24 History acid 0.4 mg tablet pantopr
[2024-04-14 08:57] VITALS: BP 128/71; PULSE 65; RESP 18; O2SAT 99
[2024-04-14 09:07] VITALS: BP 131/75; PULSE 62; RESP 20; O2SAT 95
[2024-04-14 09:17] VITALS: BP 170/84; PULSE 62; RESP 20; O2SAT 100
== END 2024-04-14 09:26 | disposition home or self-care (01) ==
PROVIDERS: PCP Internal Medicine; Visit Provider Surgery
PROC: 0DJ08ZZ Inspection of Upper Intestinal Tract, Via Natural or Artificial Opening Endoscopic (ICD-10-PCS; CPT 43235; principal; 2024-04-14 08:30)
DX: K22.2 Esophageal obstruction (principal); K44.9 Diaphragmatic hernia without obstruction or gangrene; K21.9 Gastro-esophageal reflux disease without esophagitis; E78.00 Pure hypercholesterolemia, unspecified; F17.210 Nicotine dependence, cigarettes, uncomplicated; Z98.890 Other specified postprocedural states; Z90.49 Acquired absence of other specified parts of digestive tract; Z85.46 Personal history of malignant neoplasm of prostate; Z82.49 Family history of ischemic heart disease and other diseases of the circulatory system
CPT/HCPCS: 43249; C1726; J0360; J2704; J7120

== ENCOUNTER 2024-10-06 14:09 | Outpatient (CLI) | payer MEDICARE, SELFPAY ==
--- NOTE | ~2024-10-06 | XR_ITS ---
XR hand RT min 3V Ordering provider: Violet Adair MD History: . G56.01 - Carpal tunnel syndrome, right upper limb . Comparison: None. FINDINGS: BONES: No acute fracture or dislocation. Postoperative changes in the proximal phalanx of the little finger and in the fourth metacarpal bone. Osteopenia of the bones. JOINT SPACES: Normal. SOFT TISSUES: Normal. IMPRESSION: No acute osseous abnormality right hand. Reviewed, dictated and finalized at location A. ECTION SUPERVISOR
--- OUTSIDE RECORDS SUMMARY | 2024-10-06 15:38 | XMS_ITS | Clinical Summary ---
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
--- OUTSIDE RECORDS SUMMARY | 2024-10-06 15:38 | XMS_ITS | Encounter Summary ---
Author Organization [employer] Address [address] [place] [address] Care Team Providers Care Research Environmental Scientist Name Role Phone Unavailable Primary Care Provider Unavailabl e Encounter Details Date Type Department Care Team (Late st Contact Info) Description 06/25/2007 Outpatient [facility] Julissa Cowan MD [address] [facility] [address] [place], [place] [id number] Stricture and Stenosis of Esophagus (Primary Dx) Social History Tobacco Use Types Packs/Day Years Used Date Smoking Tobacco: Never Assessed Sex and Gender Information Value Date Recorded Sex Assigned at Not on file Legal Sex Male 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
--- OUTSIDE RECORDS SUMMARY | 2024-10-06 15:39 | XMS_ITS | Encounter Summary ---
Author Organization [employer] Address 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
--- OUTSIDE RECORDS SUMMARY | 2024-10-06 15:39 | XMS_ITS | Encounter Summary ---
Author Organization [employer] Address 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
--- OUTSIDE RECORDS SUMMARY | 2024-10-06 15:39 | XMS_ITS | Encounter Summary ---
Author Organization [employer] Address 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
--- OUTSIDE RECORDS SUMMARY | 2024-10-06 15:39 | XMS_ITS | Clinical Summary ---
Author Organization [facility] Address [address] [place] [address] Care Team Providers Care Superintendent Of Schools Name Role Phone Eboni Oneill MD Primary Care Provider [phone] Allergies Active Allergy Reactions Criticality Noted Date Comments Terbinafine GI Upset Medium 10/06/2020 Only took 4 tablets and then threw away Medications atorvastatin 20 MG tablet atorvastatin 20 mg tablet TK 1 T PO QD Active Active Problems No known active problems Social History Tobacco Use Types Packs/Day Years Used Date Smoking Tobacco: Never Smokeless Tobacco: Never Tobacco Cessation:Counseling Given: No Alcohol Use Standard Drinks/Week Comments Never 0 (1 standard drink = 0.6 oz pur e alcohol) AUDIT-C Answer Date Recorded Q1: How often do you have a drink containing alc ohol? Never 07/08/2020 Average Number of Drinks Not on file 020 Frequency of Binge Drinking Not on file 10/2019 PHQ-2 Answer Date Recorded PHQ-2 Score - If the patient scores above 3, please move on to questions 3-9 0 07/08/2020 Sex and Gender Information Value Date Recorded Sex Assigned at Male 07/08/2020 4:13 PM CODING COMPLIANCE SPECIALIST Legal Sex Male 5:13 PM CDT Gender Identity Male 07/08/2020 4:13 PM CODING COMPLIANCE SPECIALIST Sexual Orientation Straight 07/08/2020 4: 13 PM CODING COMPLIANCE SPECIALIST Last Filed Vital Signs Vital Sign Reading Time Taken Comments Blood Pressure 144/82 10/06/2020 9:55 AM CODING COMPLIANCE SPECIALIST Pulse 84 10/06/2020 9:55 AM CODING COMPLIANCE SPECIALIST Temperature - - Respiratory Rate - - Oxygen Saturation 95% 10/06/2020 9:55 AM CODING COMPLIANCE SPECIALIST Inhaled Oxygen Concentration - - Weight 83.8 kg (184 lb 12.8 oz) 10/06/2020 9:55 AM CODING COMPLIANCE SPECIALIST Height 182.9 cm (6') 10/06/2020 9:55 AM CODING COMPLIANCE SPECIALIST Body Mass Index 25.06 10/06/2020 9:55 AM CODING COMPLIANCE SPECIALIST Plan of Treatment Health Maintenance Due Date Last Done Comments DTaP, Tdap and Td Vaccines ( 1 - Tdap) 1957 Zoster Vaccines (1 of 2) 01/27/1988 Annual Medicare Wellness Visit 2003 Pneumococcal Vaccine: 65+ Ye ars (1 of 1 - PCV) 2003 RSV Immunization or 60+ Years (1 - 1-dose 75+ series) 2013 COVID-19 Vaccine ( - 2023-2 5 season) 2024 Influenza Adult (#1) 2024 Meningococcal B Vaccine Aged Out No l onger eligible based on patient's age to complete this topic Meningococcal Vaccine Aged Out No aditya emma eligible based on patient's age to complete this topic RSV Immunizations Under 20 Months Aged Out No longer eligible based on patient's age to complete this topic Insurance [facility] MEDICARE Care Teams Superintendent Of Schools Relationship Specialty Start Date End Date Eboni Oneill MD [address] [place] [address] PCP - General INTERNAL MEDICINE 06/14/20
== END 2024-10-06 14:10 | disposition home or self-care (01) ==
PROVIDERS: PCP Internal Medicine; Visit Provider Plastic Surgery
DX: G56.01 Carpal tunnel syndrome, right upper limb (principal)
CPT/HCPCS: 73130

== ENCOUNTER 2024-12-03 13:10 | Outpatient (CLI) | payer MEDICARE, SELFPAY ==
--- NOTE | 2024-12-03 13:40 | NEURO_ITS ---
Impression: # Complains of numbness of right hand. ? # Right Carpal Tunnel Syndrome. 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 ? # Mildly abnormal Needle/EMG exam of right abductor pollicis brevis. Nerve Conduction Studies Anti Sensory Summary Table ?Stim Site NR Peak (ms) P-T Amp (?V) Site1 Site2 Delta-P (ms) Dist (cm) Riaz (m/s) Right Median Anti Sensory (2-3nd Digit) Wrist ? 4.9 19.6 Wrist 2-3nd Digit 4.9 14.0 29 Wrist ? 5.4 22.5 Wrist 2-3nd Digit 4.9 14.0 29 Right Radial Anti Sensory (Base 1st Digit) Wrist ? 2.4 22.2 Wrist Base 1st Digit 2.4 0.0 Right Ulnar Anti Sensory (5th Digit) Wrist ? 3.2 44.9 Wrist 5th Digit 3.2 14.0 44 Motor Summary Table ?Stim Site NR Onset (ms) O-P Amp (mV) Site1 Site2 Delta-0 (ms) Dist (cm) Riaz (m/s) Right Median Motor (Abd Poll Brev) Wrist ? 4.9 5.4 Elbow Wrist 6.5 32.0 49 Elbow ? 11.4 4.2 Right Ulnar Motor (Abd Dig Minimi) Wrist ? 3.3 4.8 A Elbow Wrist 6.0 32.0 53 A Elbow ? 9.3 3.9 B Elbow Wrist 4.6 26.0 57 B Elbow ? 7.9 4.1 F Wave Studies ?NR F-Lat (ms) L-R F-Lat (ms) Right Median (Mrkrs) (Abd Poll Brev) ? 34.44 Right Ulnar (Mrkrs) (Abd Dig Min) ? 34.26 EMG ?Side Muscle Nerve Root Ins Act Fibs Amp Dur Recrt Comment Right 1stDorInt Ulnar C8-T1 Nml Nml Nml Nml Nml Right Ext Indicis Radial (Post Int) C7-8 Nml Nml Nml Nml Nml Right Ext Digitorum Radial (Post Int) C7-8 Nml Nml Nml Nml Nml Right BrachioRad Radial C5-6 Nml Nml Nml Nml Nml Right PronatorTeres Median C6-7 Nml Nml Nml Nml Nml Right Abd Poll Brev Median C8-T1 Nml Nml Incr >12ms +1 Right ABD Dig Min Ulnar C8-T1 Nml Nml Nml Nml Nml Right FlexPolLong Median (Ant Int) C7-8 Nml Nml Nml Nml Nml Right Abd Poll Long Radial (Post Int) C7-8 Nml Nml Nml Nml Nml MTDD
--- OUTSIDE RECORDS SUMMARY | 2024-12-03 14:00 | XMS_ITS | Encounter Summary ---
Author Organization [employer] Address [address] [place] [address] Care Team Providers Care Reviewer Sales Name Role Phone Unavailable Primary Care Provider Unavailabl e Encounter Details Date Type Department Care Team (Late st Contact Info) Description 06/25/2007 Outpatient Historical [facility] Julissa Cowan MD [address] [facility] [address] [place], [place] [id number] Stricture and Stenosis of Esophagus (Primary Dx) Social History Tobacco Use Types Packs/Day Years Used Date Smoking Tobacco: Never Assessed Sex and Gender Information Value Date Recorded Sex Assigned at Not on file Legal Sex Male 3:41 AM SENIOR PARTNER Gender Identity Not on file Sexual Orientation Not on file documented as of this encounter Plan of Treatment Not on file documented as of this encounter Visit Diagnoses Diagnosis Stricture and stenosis of esophagus- Primary documented in this encounter
--- OUTSIDE RECORDS SUMMARY | 2024-12-03 14:00 | XMS_ITS | Encounter Summary ---
Author Organization [employer] Address [address] [place] [address] Care Team Providers Care Filter Tank Tender Helper Name Role Phone Unavailable Primary Care Provider Unavailabl e Encounter Details Date Type Department Care Team (Late st Contact Info) Description 10/29/1998 Outpatient Historical [facility] Julissa Cowan MD [address] [facility] [address] [place] [address] Unspecified hemorrhoids without mention of complication (Primary Dx) Social History Tobacco Use Types Packs/Day Years Used Date Smoking Tobacco: Never Assessed Sex and Gender Information Value Date Recorded Sex Assigned at Not on file Legal Sex Male 3:41 AM TRANSMITTER ENGINEER Gender Identity Not on file Sexual Orientation Not on file documented as of this encounter Plan of Treatment Not on file documented as of this encounter Visit Diagnoses Diagnosis Unspecified hemorrhoids without mention of complication- Primary documented in this encounter
--- OUTSIDE RECORDS SUMMARY | 2024-12-03 14:00 | XMS_ITS | Encounter Summary ---
Author Organization [employer] Address [address] [place] [address] Care Team Providers Care Natural Resources Specialist Name Role Phone Unavailable Primary Care Provider Unavailabl e Encounter Details Date Type Department Care Team (Late st Contact Info) Description 11/02/2008 Outpatient Historical [facility] Julissa Cowan MD [address] 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
--- OUTSIDE RECORDS SUMMARY | 2024-12-03 14:00 | XMS_ITS | Encounter Summary ---
Author Organization [employer] Address [address] [place] [address] Care Team Providers Care Sitecore Developer Name Role Phone Unavailable Primary Care Provider Unavailabl e Encounter Details Date Type Department Care Team (Late st Contact Info) Description 03/09/1999 Outpatient Historical [facility] Julissa Cowan MD [address] [facility] [address] [place], [place] [id number] Stricture and stenosis of esophagus (Primary Dx) Social History Tobacco Use Types Packs/Day Years Used Date Smoking Tobacco: Never Assessed Sex and Gender Information Value Date Recorded Sex Assigned at Not on file Legal Sex Male 3:41 AM HOSPITAL INSURANCE REPRESENTATIVE Gender Identity Not on file Sexual Orientation Not on file documented as of this encounter Plan of Treatment Not on file documented as of this encounter Visit Diagnoses Diagnosis Stricture and stenosis of esophagus- Primary documented in this encounter
--- OUTSIDE RECORDS SUMMARY | 2024-12-03 14:00 | XMS_ITS | Clinical Summary ---
Author Organization [facility] Address [address] [facility] Attn: Epic Prelude ADT [place] [address] Care Team Providers Care Wind Projects Supervisor Name Role Phone Unavailable Primary Care Provider Unavailabl e Social History Tobacco Use Types Packs/Day Years Used Date Smoking Tobacco: Never Assessed Sex and Gender Information Value Date Recorded Sex Assigned at Not on file Legal Sex Male 3:41 AM MATCHER LEATHER PARTS Gender Identity Not on file Sexual Orientation [...]
== END 2024-12-03 13:11 | disposition home or self-care (01) ==
LOC: ANHNEURO 13:10
PROVIDERS: PCP Internal Medicine; Visit Provider Plastic Surgery
DX: G56.01 Carpal tunnel syndrome, right upper limb (principal); G56.21 Lesion of ulnar nerve, right upper limb
CPT/HCPCS: 95886; 95909